=== PATIENT | female | born 1965 | race American Indian/Alaskan Native ===

== ENCOUNTER 2019-07-07 12:36 | Emergency (ER) | payer SELFPAY ==
--- NOTE | 2019-07-07 13:00 | Event Note ---
ED Screening Note Date of service: 07/07/19 Time: 12:54 ED Screening Note: Pt complains of cough and congestion x 4 days. Denies fever. Hx of HIV-states taking antivirals also complains of chronic pain in legs from shingles BP elevated-pt states she just took her BP meds-normally runs 195/100 with meds per pt This initial assessment/diagnostic orders/clinical plan/treatment(s) is/are subject to change based on patients health status, clinical progression and re- assessment by fellow clinical providers in the ED. Further treatment and workup at subsequent clinical providers discretion. Patient/guardian urged not to elope from the ED as their condition may be serious if not clinically assessed and managed. Initial orders include: CXR BMP CBC
[2019-07-07] MEDS ORDERED: CATAPRES PO ONE (13:26)
[2019-07-07] MEDS ORDERED: PROVENTIL IH ONE (13:37)
--- NOTE | 2019-07-07 13:43 | Emergency Department Report ---
HPI - General Chief Complaint: Upper Respiratory Infection Time Seen by Provider: 07/07/19 13:25 - HPI HPI: Room 40 The patient is a 53-year-old female presenting with chief complaint of shortness of breath and cough. The patient states for the past 2 days she's had a cough has been nonproductive associated with shortness of breath and yellow rhinorr hea. The patient states other family members in the home are sick with the same symptoms. Patient of Mr. lynch. Patient also complains of pain to her lower extremity from her diagnosis of shingles 6 months ago. The patient states she is taking gabapentin 300 mg and it is not helping ED Past Medical Hx - Past Medical History Previous Medical History?: Yes Hx Hypertension: Yes Hx HIV: Yes (last CD4 count normal) Additional medical history: Shingles - Surgical History Additional Surgical History: C Section - Family History Family history: no significant - Social History Smoking Status: Current Every Day Smoker (1/2 pack per day) Substance Use Type: None (denies illicit drug use) - Medications Home Medications: Home Medications Medication Instructions Recorded Confirmed Last Taken Type ALBUTEROL Inhaler (OR & NICU) 2 puff IH QID PRN #1 inhalation 07/07/19 Unknown Rx [Proair] Azithromycin [Zithromax Z-ROSHNI] 0 mg PO DAILY #6 tab 07/07/19 Unknown Rx Benzonatate [Tessalon Perles] 100 mg PO Q8HR #30 capsule 07/07/19 Unknown Rx Ibuprofen [Motrin 800 MG tab] 800 mg PO Q8HR PRN #20 tablet 07/07/19 Unknown Rx traMADol [Ultram] 50 mg PO Q6HR PRN #10 tablet 07/07/19 Unknown Rx ED Review of Systems ROS: Stated complaint: FLU LIKE SYMPTOMS/CERVICAL WARTS Other details as noted in HPI Constitutional: no symptoms reported Eyes: denies: eye pain ENT: other (rhinorrhea) Respiratory: cough, shortness of breath Cardiovascular: denies: chest pain Endocrine: no symptoms reported Gastrointestinal: denies: abdominal pain Genitourinary: denies: dysuria Musculoskeletal: myalgia Neurological: denies: headache Physical Exam - Physical Exam Vital Signs: Vital Signs 07/07/19 12:54 Temperature 98.5 F Pulse Rate 66 Respiratory 18 Rate Blood Pressure 235/139 Blood Pressure 235/139 [Right] O2 Sat by Pulse 99 Oximetry Physical Exam: GENERAL: The patient is well-developed well-nourished female lying on stretcher not appearing to be in acute distress. [] HEENT: Normocephalic. Atraumatic. Extraocular motions are intact. Patient has moist mucous membranes. Rhinorrhea NECK: Supple. Trachea midline CHEST/LUNGS: Occasional rhonchi, occasional cough. There is no respiratory distress noted. HEART/CARDIOVASCULAR: Regular. There is no tachycardia. There is no gallop rub or murmur. ABDOMEN: Abdomen is soft, nontender. Patient has normal bowel sounds. There is no abdominal distention. SKIN: There is no rash. There is no edema. There is no diaphoresis. NEURO: The patient is awake, alert, and oriented. The patient is cooperative. The patient has normal speech and gait. MUSCULOSKELETAL: There is no evidence of acute injury. ED Course Vital Signs 07/07/19 12:54 Temperature 98.5 F Pulse Rate 66 Respiratory 18 Rate Blood Pressure 235/139 Blood Pressure 235/139 [Right] O2 Sat by Pulse 99 Oximetry ED Medical Decision Making - Lab Data Result diagrams: 07/07/19 14:09 07/07/19 14:09 Laboratory Tests 07/07/19 07/07/19 07/07/19 14:09 14:09 14:20 WBC 4.1 L RBC 5.77 H Hgb 13.0 Hct 41.1 MCV 71 L MCH 23 L MCHC 32 RDW 14.5 Plt Count 234 Lymph % (Auto) 35.2 H Dare % (Auto) 15.9 H Eos % (Auto) 2.2 Baso % (Auto) 0.6 Lymph # 1.4 Dare # 0.7 Eos # 0.1 Baso # 0.0 Seg Neutrophils % 46.1 Seg Neutrophils # 1.9 Sodium 138 Potassium 4.3 Chloride 100.1 Carbon Dioxide 23 Anion Gap 19 BUN 17 Creatinine 1.1 Estimated GFR 52 BUN/Creatinine Ratio 15 Glucose 100 Calcium 9.4 Influenza A (Rapid) Negative Influenza B (Rapid) Negative - Radiology Data Radiology results: image reviewed (chest x-ray) interpreted by me: Chest x-ray-no focal infiltrates, no pneumothorax - Differential Diagnosis URI, bronchitis, influenza Critical care attestation.: If time is entered above; I have spent that time in minutes in the direct care of this critically ill patient, excluding procedure time. ED Disposition Clinical Impression: URI (upper respiratory infection) Disposition: DC-01 TO HOME OR SELFCARE Is pt being admited?: No Does the pt Need Aspirin: No Condition: Stable Additional Instructions: Return to the emergency department should you develop worsening symptoms, inability to tolerate food or liquids, high fever or any other concerns Prescriptions: Ibuprofen [Motrin 800 MG tab] 800 mg PO Q8HR PRN #20 tablet PRN Reason: Pain, Moderate (4-6) ALBUTEROL Inhaler (OR & NICU) [Proair] 2 puff IH QID PRN #1 inhalation PRN Reason: Shortness Of Breath Benzonatate [Tessalon Perles] 100 mg PO Q8HR #30 capsule traMADol [Ultram] 50 mg PO Q6HR PRN #10 tablet PRN Reason: Pain Azithromycin [Zithromax Z-ROSHNI] 0 mg PO DAILY #6 tab Referrals: CHRISTOPHE FUCHS MD [Staff Physician] - 3-5 Days (Dr. Fuchs is a primary physician. Please follow up with him to be established as a patient) CAROL PENA MD [Staff Physician] - 3-5 Days (Dr. Pena is an Infectious [facility] doctor. Please follow up with him to be established as a patient) Time of Disposition: 16:49
[2019-07-07 14:41] LABS: Basophils % (Auto) 0.6 % (0.0-1.8); Eosinophils # (Auto) 0.1 K/mm3 (0.0-0.4); Eosinophils % (Auto) 2.2 % (0.0-4.3); Hematocrit 41.1 % (30.3-42.9); Lymphocytes # (Auto) 1.4 K/mm3 (1.2-5.4); Lymphocytes % (Auto) 35.2 % (13.4-35.0); Mean Corpuscular HGB Conc 32 % (30-34); Mean Corpuscular Volume 71 fl (79-97); Monocytes # (Auto) 0.7 K/mm3 (0.0-0.8); Monocytes % (Auto) 15.9 % (0.0-7.3); Platelet Count 234 K/mm3 (140-440); Red Blood Count 5.77 M/mm3 (3.65-5.03); Red Cell Distribution Width 14.5 % (13.2-15.2)
[2019-07-07 15:00] LABS: Calcium 9.4 mg/dL (8.4-10.2)
--- NOTE | 2019-07-07 17:33 | XRay Report ---
CHEST 1 VIEW INDICATION / CLINICAL INFORMATION: cough. COMPARISON: None available. FINDINGS: SUPPORT DEVICES: None. HEART / MEDIASTINUM: No significant abnormality. LUNGS / PLEURA: No significant pulmonary or pleural abnormality. No pneumothorax. There is minimal le ft midlung atelectasis. ADDITIONAL FINDINGS: No significant additional findings. IMPRESSION: 1 No significant abnormality. Signer Name: Neil Mcgregor MD Signed: 07/07/2019 5:28 PM Workstation Name: [id number]
[2019-07-07 17:48] VITALS: BP 171/106
== END 2019-07-07 17:46 | disposition home or self-care (01) ==
LOC: ED 12:36
DX: J06.9 Acute upper respiratory infection, unspecified (principal); I10 Essential (primary) hypertension; F17.200 Nicotine dependence, unspecified, uncomplicated
CPT/HCPCS: 36415; 71046; 80048; 85025; 87400; 94640; 94644

== ENCOUNTER 2019-08-14 14:07 | Emergency (ER) | payer OTHER ==
[2019-08-14] MEDS ORDERED: hydrALAZINE 100 MG TAB PO ONE (15:02)
[2019-08-14] MEDS ORDERED: LOSARTAN 50 MG TAB PO ONE (15:10)
--- NOTE | 2019-08-14 16:22 | Emergency Department Report ---
ED General Adult HPI - General Chief complaint: High BP Stated complaint: HBP/HEADACHE Time Seen by Provider: 08/14/19 14:52 Source: patient Mode of arrival: Ambulatory Limitations: No Limitations - History of Present Illness Initial comments: 53-year-old female with a past medical history hypertension and HIV presents to the hospital complaining of elevated blood pressure and headache. Patient states she has had similar symptoms in the past her blood pressure was high. She last took her depression medicine yesterday. She complains of a 5/10 head ache which she characterizes as mild. She denies blurred vision, nausea, vomiting, chest pain, shortness of breath, or focal weakness or numbness. Patient presents with several blood pressure medication prescriptions stating that she cannot afford to have them filled. She received a 1 month supply of her meds 3 from [facility] and states they refused to give her anymore free medication. She cannot afford the medication and has been prescribed below. She was just seen at [place] several days ago and had a last drawn and received additional prescriptions. Patient states that she will continue to go to ERs for treatment because she cannot afford the meds. nifedipine 90mg q 24hr losartan 100mg qd hydralazine 100 mg BID gabapentin 300mg tid [id number] alafenamide 50-200-25mg qd Severity scale (0 -10): 0 - Related Data Previous Rx's Medication Instructions Recorded Last Taken Type ALBUTEROL Inhaler (OR & NICU) 2 puff IH QID PRN #1 inhalation 07/07/19 Unknown Rx [Proair] Azithromycin [Zithromax Z-ROSHNI] 0 mg PO DAILY #6 tab 07/07/19 Unknown Rx Benzonatate [Tessalon Perles] 100 mg PO Q8HR #30 capsule 07/07/19 Unknown Rx Ibuprofen [Motrin 800 MG tab] 800 mg PO Q8HR PRN #20 tablet 07/07/19 Unknown Rx traMADoL [Ultram] 50 mg PO Q6HR PRN #10 tablet 07/07/19 Unknown Rx Bictegrav/Emtricit/Tenofov Ala 1 each PO DAILY #14 tablet 08/14/19 Unknown Rx [Biktarvy 50-200-25 mg (Nf)] Gabapentin 300 mg PO Q8HR #42 capsule 08/14/19 Unknown Rx Losartan [Cozaar] 100 mg PO QDAY #14 tablet 08/14/19 Unknown Rx NIFEdipine [Nifedipine ER] 90 mg PO Q24HR #14 tablet.er 08/14/19 Unknown Rx hydrALAZINE [Apresoline TAB] 100 mg PO BID #28 tab 08/14/19 Unknown Rx Allergies Allergy/AdvReac Type Severity Reaction Status Date / Time No Known Allergies Allergy Verified 08/14/19 14:09 ED Review of Systems ROS: Stated complaint: HBP/HEADACHE Other details as noted in HPI Comment: All other systems reviewed and negative ED Past Medical Hx - Past Medical History Hx Hypertension: Yes Hx CVA: No Hx Heart Attack/AMI: No Hx Diabetes: No Hx Deep Vein Thrombosis: No Hx Pulmonary Embolism: No Hx GERD: No Hx Liver Disease: No Hx Renal Disease: No Hx Sickle Cell Disease: No Hx Arthritis: No Hx Headaches / Migraines: No Hx Seizures: No Hx Kidney Stones: No Hx Psychiatric Treatment: No Hx Asthma: No Hx COPD: No Hx Tuberculosis: No Hx Dementia: No Hx HIV: Yes (last CD4 count normal) Additional medical history: Shingles - Surgical History Hx Coronary Stent: No Hx Pacemaker: No Hx Internal Defibrillator: No Hx Cholecystectomy: No Hx Appendectomy: No Hx Breast Surgery: No Additional Surgical History: C Section - Social History Smoking Status: Current Every Day Smoker Substance Use Type: None - Medications Home Medications: Home Medications Medication Instructions Recorded Confirmed Last Taken Type ALBUTEROL Inhaler (OR & NICU) 2 puff IH QID PRN #1 inhalation 07/07/19 Unknown Rx [Proair] Azithromycin [Zithromax Z-ROSHNI] 0 mg PO DAILY #6 tab 07/07/19 Unknown Rx Benzonatate [Tessalon Perles] 100 mg PO Q8HR #30 capsule 07/07/19 Unknown Rx Ibuprofen [Motrin 800 MG tab] 800 mg PO Q8HR PRN #20 tablet 07/07/19 Unknown Rx traMADoL [Ultram] 50 mg PO Q6HR PRN #10 tablet 07/07/19 Unknown Rx Bictegrav/Emtricit/Tenofov Ala 1 each PO DAILY #14 tablet 08/14/19 Unknown Rx [Biktarvy 50-200-25 mg (Nf)] Gabapentin 300 mg PO Q8HR #42 capsule 08/14/19 Unknown Rx Losartan [Cozaar] 100 mg PO QDAY #14 tablet 08/14/19 Unknown Rx NIFEdipine [Nifedipine ER] 90 mg PO Q24HR #14 tablet.er 08/14/19 Unknown Rx hydrALAZINE [Apresoline TAB] 100 mg PO BID #28 tab 08/14/19 Unknown Rx ED Physical Exam - General Limitations: No Limitations - Other Other exam information: General: No acute distress Head: Atraumatic Eyes: normal appearance ENT: Moist mucous membranes Neck: Normal appearance, no midline tenderness Chest: Clear to auscultation bilaterally CV: Regular rate and rhythm Abdomen: Soft, normal bowel sounds, nontender, nondistended, no rebound or guarding Back: Normal inspection Extremity: Normal inspection infection, full range of motion Neuro: Alert O x 3, no facial asymmetry, speech clear, no gross motor sensory deficit Psych: Appropriate behavior Skin: No rash ED Course Vital Signs 08/14/19 08/14/19 08/14/19 15:28 15:30 15:31 Temperature 97.6 F Pulse Rate 55 L 54 L 57 L Respiratory 18 18 21 Rate Blood Pressure 211/119 Blood Pressure 211/119 [Right] O2 Sat by Pulse 100 100 100 Oximetry 08/14/19 08/14/19 08/14/19 15:32 15:41 16:00 Temperature 97.6 F 97.6 F Pulse Rate 53 L 53 L 63 Respiratory 18 20 Rate Blood Pressure 211/119 211/119 235/120 Blood Pressure 262/159 [Right] O2 Sat by Pulse 100 97 Oximetry 08/14/19 08/14/19 08/14/19 16:30 17:00 17:15 Temperature Pulse Rate 92 H 94 H 102 H Respiratory 13 19 26 H Rate Blood Pressure 201/107 185/112 176/118 Blood Pressure [Right] O2 Sat by Pulse 100 99 96 Oximetry 08/14/19 08/14/19 17:30 17:45 Temperature Pulse Rate 97 H 64 Respiratory 27 H 17 Rate Blood Pressure 151/108 156/99 Blood Pressure [Right] O2 Sat by Pulse 97 96 Oximetry ED Medical Decision Making - Medical Decision Making pt given a dose of hydralazine and Cozaar. Patient had recent last performed at [facility] within last week. pt denies renal failure. states lantigua similar to previous htn lantigua bp and lantigua improved with blood pressure reduction plan to prescribed current meds in 2 week increments to make it more affordable to fill, good rx card given - Differential Diagnosis htn emergency/urgency/uncontrolled bp/med noncompliance Critical Care Time: No Critical care attestation.: If time is entered above; I have spent that time in minutes in the direct care of this critically ill patient, excluding procedure time. ED Disposition Clinical Impression: Uncontrolled hypertension, Headache, Noncompliance with medication regimen Disposition: - TO HOME OR SELFCARE Is pt being admited?: No Does the pt Need Aspirin: No Condition: Stable Instructions: Hypertension (ED), Acute Headache (ED) Additional Instructions: Take the medication as prescribed. Follow-up with your doctor or doctor/clinic provided. Return if symptoms worsen as indicated by your discharge instructions. Prescriptions: hydrALAZINE [Apresoline TAB] 100 mg PO BID #28 tab Bictegrav/Emtricit/Tenofov Ala [Biktarvy 50-200-25 mg (Nf)] 1 each PO DAILY #14 tablet Losartan [Cozaar] 100 mg PO QDAY #14 tablet Gabapentin 300 mg PO Q8HR #42 capsule NIFEdipine [Nifedipine ER] 90 mg PO Q24HR #14 tablet.er Referrals: [facility] [Provider Group] - 3-5 Days Time of Disposition: 18:40
[2019-08-14 19:02] VITALS: BP 159/88
== END 2019-08-14 19:02 | disposition home or self-care (01) ==
LOC: ED 14:07
DX: R51 Headache (principal); I10 Essential (primary) hypertension; F17.200 Nicotine dependence, unspecified, uncomplicated; Z91.14 Patient's other noncompliance with medication regimen

== ENCOUNTER 2019-09-01 09:51 | Emergency (ER) | payer SELFPAY ==
[2019-09-01 09:56] VITALS: BP 168/103
--- NOTE | 2019-09-01 10:34 | Emergency Department Report ---
Chief Complaint: Upper Respiratory Infection Stated Complaint: COLD SYMPTOMS/DIARRHEA Time Seen by Provider: 09/01/19 10:31 - HPI History of Present Illness: Mrs. Wallis is a 53 yo female with hx of HIV on ART. She reports undetectable viral load and normal CD 4 counts without complication. She has cough, body aches, nasal congestion. No fever. dx: URI. recommended OTC supportive care treatments MSE performed. No indication of life or limb threating condition. dc'd home - Exam Vital Signs: Vital Signs 09/01/19 09:55 Temperature 98.0 F Pulse Rate 79 Respiratory 22 Rate Blood Pressure 168/103 O2 Sat by Pulse 97 Oximetry MSE screening note: Focused history and physical exam performed. Due to findings the following was ordered: ED Disposition for MSE Clinical Impression: URI (upper respiratory infection) Disposition: Z-07 MED SCREENING EXAM-LEFT Is pt being admited?: No Does the pt Need Aspirin: No Condition: Stable
== END 2019-09-01 10:59 | disposition left against medical advice (07) ==
LOC: ED 09:51
DX: J06.9 Acute upper respiratory infection, unspecified (principal)
CPT/HCPCS: 99282

== ENCOUNTER 2019-11-30 10:40 | Emergency (ER) | payer SELFPAY ==
[2019-11-30] MEDS ORDERED: NON-FORMULARY EACH (Nifedipine [Nifedipine Er] 90 MG) PO STA (11:48)
[2019-11-30] MEDS ORDERED: hydrALAZINE 100 MG TAB PO ONE (11:49)
--- NOTE | 2019-11-30 11:49 | Emergency Department Report ---
ED General Adult HPI - General Chief complaint: High BP Stated complaint: HBP Time Seen by Provider: 11/30/19 11:33 Source: patient, RN notes reviewed, old records reviewed Mode of arrival: Ambulatory Limitations: No Limitations - History of Present Illness Initial comments: The patient is a pleasant 54-year-old female. She is not known to myself previ ously. She has a history of hypertension and HIV. She is currently on antiviral therapy, and takes losartan, nifedipine and hydralazine. She does not have a local primary care doctor secondary to insurance issues. She presents to the ER today with a complaint of painless high blood pressure. She ran out of her medications this week. She also consumes coffee. She denies physical pain. She denies headache, neck pain, chest pain, abdominal pain and shortness of breath. She has no complaints at this time. She was given her antihypertensive therapy, and her blood pressure improved. She reports that she is following up with the health department. She endorses readiness for discharge. -: Gradual Consistency: now resolved Improves with: medication Worsens with: none Associated Symptoms: denies other symptoms - Related Data Previous Rx's Medication Instructions Recorded Last Taken Type Albuterol INH(or & Nicu Only) 2 puff IH QID PRN #1 inhalation 07/07/19 Unknown Rx [ProAir HFA Inhaler] Ibuprofen [Motrin 800 MG tab] 800 mg PO Q8HR PRN #20 tablet 07/07/19 Unknown Rx Gabapentin 300 mg PO Q8HR #42 capsule 08/14/19 Unknown Rx Bictegrav/Emtricit/Tenofov Ala 1 each PO DAILY #30 tablet 11/30/19 Unknown Rx [Biktarvy 50-200-25 mg (Nf)] Losartan [Cozaar] 100 mg PO QDAY #30 tablet 11/30/19 Unknown Rx NIFEdipine [Nifedipine ER] 90 mg PO Q24HR #30 tablet.er 11/30/19 Unknown Rx hydrALAZINE [Apresoline TAB] 100 mg PO BID #28 tab 11/30/19 Unknown Rx Allergies Allergy/AdvReac Type Severity Reaction Status Date / Time No Known Allergies Allergy Verified 08/14/19 14:09 ED Review of Systems ROS: Stated complaint: HBP Other details as noted in HPI Comment: All other systems reviewed and negative ED Past Medical Hx - Past Medical History Hx Hypertension: Yes Hx CVA: No Hx Heart Attack/AMI: No Hx Diabetes: No Hx Deep Vein Thrombosis: No Hx Pulmonary Embolism: No Hx GERD: No Hx Liver Disease: No Hx Renal Disease: No Hx Sickle Cell Disease: No Hx Arthritis: No Hx Headaches / Migraines: No Hx Seizures: No Hx Kidney Stones: No Hx Psychiatric Treatment: No Hx Asthma: No Hx COPD: No Hx Tuberculosis: No Hx Dementia: No Hx HIV: Yes Additional medical history: Shingles - Surgical History Hx Coronary Stent: No Hx Pacemaker: No Hx Internal Defibrillator: No Hx Cholecystectomy: No Hx Appendectomy: No Hx Breast Surgery: No Additional Surgical History: C Section - Social History Smoking Status: Never Smoker Substance Use Type: None - Medications Home Medications: Home Medications Medication Instructions Recorded Confirmed Last Taken Type Albuterol INH(or & Nicu Only) 2 puff IH QID PRN #1 inhalation 07/07/19 Unknown Rx [ProAir HFA Inhaler] Ibuprofen [Motrin 800 MG tab] 800 mg PO Q8HR PRN #20 tablet 07/07/19 Unknown Rx Gabapentin 300 mg PO Q8HR #42 capsule 08/14/19 Unknown Rx Bictegrav/Emtricit/Tenofov Ala 1 each PO DAILY #30 tablet 11/30/19 Unknown Rx [Biktarvy 50-200-25 mg (Nf)] Losartan [Cozaar] 100 mg PO QDAY #30 tablet 11/30/19 Unknown Rx NIFEdipine [Nifedipine ER] 90 mg PO Q24HR #30 tablet.er 11/30/19 Unknown Rx hydrALAZINE [Apresoline TAB] 100 mg PO BID #28 tab 11/30/19 Unknown Rx ED Physical Exam - General Limitations: No Limitations General appearance: alert, in no apparent distress - Head Head exam: Present: atraumatic, normocephalic - Eye Eye exam: Present: normal appearance, PERRL, EOMI, other (Visual acuity intact to finger counting and color perception at a close distance). Absent: nystagmus - ENT ENT exam: Present: normal exam, normal orophraynx, mucous membranes moist, normal external ear exam - Neck Neck exam: Present: normal inspection, full ROM. Absent: tenderness, meningismus - Respiratory Respiratory exam: Present: normal lung sounds bilaterally. Absent: respiratory distress - Cardiovascular Cardiovascular Exam: Present: regular rate, normal rhythm, normal heart sounds. Absent: bradycardia, tachycardia, irregular rhythm, systolic murmur, diastolic murmur, rubs, gallop - GI/Abdominal GI/Abdominal exam: Present: soft, normal bowel sounds. Absent: distended, tenderness, guarding, rebound, rigid, pulsatile mass - Extremities Exam Extremities exam: Present: normal inspection, full ROM, other (2+ pulses noted in the bilateral upper and lower extremities. There is no palpable cord. negative Homans sign. Muscular compartments are soft. The pelvis is stable.). Absent: pedal edema, calf tenderness - Back Exam Back exam: Present: normal inspection, full ROM. Absent: tenderness, CVA tenderness (R), CVA tenderness (L), paraspinal tenderness, vertebral tenderness - Neurological Exam Neurological exam: Present: alert, oriented X3, normal gait, other (There is no facial droop. The tongue is midline. Extraocular movements are intact bilaterally. There is 5 out of 5 strength in bilateral upper and lower extremities. Sensation is intact to light touch bilateral upper and lower extremities. There is no past-pointing. There is no pronator drift. There is normal [id number]. There is a normal gait.). Absent: motor sensory deficit - Psychiatric Psychiatric exam: Present: normal affect, normal mood - Skin Skin exam: Present: warm, dry, intact, normal color. Absent: rash ED Course Vital Signs 11/30/19 11/30/19 11:42 12:50 Temperature 97.5 F L Pulse Rate 84 84 Respiratory 16 16 Rate Blood Pressure 249/161 154/90 [Left] O2 Sat by Pulse 100 96 Oximetry ED Medical Decision Making - Lab Data Vital Signs 11/30/19 11/30/19 11:42 12:50 Temperature 97.5 F L Pulse Rate 84 84 Respiratory 16 16 Rate Blood Pressure 249/161 154/90 [Left] O2 Sat by Pulse 100 96 Oximetry - Medical Decision Making Differential diagnosis, including but not limited to: Hypertension, medication refill, noncompliance, caffeine use Assessment and plan: 54-year-old female here with a complaint of painless hypertension, likely secondary to running out of her prescription medications. She is afebrile with reassuring vital signs with the exception of hypertension, and walking with a steady gait. She was given her typical antihypertensive therapy. Her blood pressure is improved. She continues to walk with a steady gait. She is in no acute distress at this time. We have given her a refill of her prescriptions, she reports that she already has an affordable prescription card, and she will receive information about local [facility] clinics. Return precautions are reviewed. She remains neurologically intact during the entire duration of her emergency room stay. Critical care attestation.: If time is entered above; I have spent that time in minutes in the direct care of this critically ill patient, excluding procedure time. ED Disposition Clinical Impression: Medication refill, Hypotension Disposition: DC-01 TO HOME OR SELFCARE Is pt being admited?: No Does the pt Need Aspirin: No Condition: Stable Additional Instructions: Continue outpatient prescription medications. Avoid consumption of caffeine, energy drinks and stimulants. Follow-up with the medical doctor within the next 4 to 6 weeks. Long-term complications of hypertension and elevated blood pressure include stroke, heart attack, disability, paralysis, loss of quality of life. Return to the emergency room right away with new, worsened or different symptoms, or symptoms not present on the initial emergency room evaluation. Please be mindful of avoiding alcohol consumption and tobacco consumption. Prescriptions: hydrALAZINE [Apresoline TAB] 100 mg PO BID #28 tab Bictegrav/Emtricit/Tenofov Ala [Biktarvy 50-200-25 mg (Nf)] 1 each PO DAILY #30 tablet Losartan [Cozaar] 100 mg PO QDAY #30 tablet NIFEdipine [Nifedipine ER] 90 mg PO Q24HR #30 tablet.er Referrals: PRIMARY MD BOB [Primary Care Provider] - 3-5 Days LUCIANO JORDAN MD [Staff Physician] - 3-[address] [facility] [Provider Group] - 3-5 Days [facility] [Provider Group] - 3-5 Days [facility] [Outside] - 3-5 Days
[2019-11-30] MEDS ORDERED: NIFEdipine XL 90 MG TAB PO STA (11:54)
[2019-11-30] MEDS: LOSARTAN 50 MG TAB PO SCH ×2 (11:59→12:14)
[2019-11-30] MEDS ORDERED: NON-FORMULARY EACH (Losartan [Cozaar] 100 MG) PO SCH (12:00)
[2019-11-30 12:58] VITALS: BP 154/90
== END 2019-11-30 14:01 | disposition home or self-care (01) ==
LOC: ED 10:40
DX: I10 Essential (primary) hypertension (principal); Z76.0 Encounter for issue of repeat prescription
CPT/HCPCS: 99282

== ENCOUNTER 2020-01-15 15:47 | Emergency (ER) | payer SELFPAY ==
--- NOTE | 2020-01-15 16:26 | XRay Report ---
CHEST 2 VIEWS INDICATION / CLINICAL INFORMATION: Cough, shortness of breath. COMPARISON: Chest x-ray on 07/07/2019. FINDINGS: SUPPORT DEVICES: None. HEART / MEDIASTINUM: No significant abnormality. LUNGS / PLEURA: No significant pulmonary or pleural abnormality. No pneumothorax. ADDITIONAL FINDINGS: No significant additional findings. IMPRESSION: 1. No acute findings. Signer Name: Jeremiah Delgado MD Signed: 01/15/2020 4:22 PM Workstation Name: [id number]
--- NOTE | 2020-01-15 16:29 | Emergency Department Report ---
Minor Respiratory - HPI Chief Complaint: Dyspnea/Respdistress Stated Complaint: SOB,COUGH Time Seen by Provider: 01/15/20 16:29 Duration: 5 Days Pain Location: Chest Severity: moderate Minor Respiratory: Yes Able to Tolerate Fluids, Yes Cough, Yes Sick Contacts, Yes Shortness of Breath, No Rhinorrhea, No Sore Throat, No Ear Pain, No Hemoptysis, No Chest Pain, No Fever Other History: Patient is a 54-year-old that comes to the emergency room with concern for COVID. Patient has a history of HIV. Her daughter has recently been positive for COVID. Patient had a COVID test today and has not had the results delivered to her from the clinic. Patient has cough shortness of breath and chills. Patient has a history of hypertension. Her blood pressure was noted to be elevated on arrival. She denies any chest pain. Patient has no fever on arrival to the ER. Patient is ambulatory to the ER and in no acute distress ED Review of Systems ROS: Stated complaint: SOB,COUGH Other details as noted in HPI Comment: All other systems reviewed and negative ED Past Medical Hx - Past Medical History Previous Medical History?: Yes Hx Hypertension: Yes Hx CVA: No Hx Heart Attack/AMI: No Hx Diabetes: No Hx Deep Vein Thrombosis: No Hx Pulmonary Embolism: No Hx GERD: No Hx Liver Disease: No Hx Renal Disease: No Hx Sickle Cell Disease: No Hx Arthritis: No Hx Headaches / Migraines: No Hx Seizures: No Hx Kidney Stones: No Hx Psychiatric Treatment: No Hx Asthma: No Hx COPD: No Hx Tuberculosis: No Hx Dementia: No Hx HIV: Yes Additional medical history: Shingles - Surgical History Past Surgical History?: Yes Hx Coronary Stent: No Hx Pacemaker: No Hx Internal Defibrillator: No Hx Cholecystectomy: No Hx Appendectomy: No Hx Breast Surgery: No Additional Surgical History: C Section - Family History Family history: no significant - Social History Smoking Status: Current Every Day Smoker Substance Use Type: None - Medications Home Medications: Home Medications Medication Instructions Recorded Confirmed Last Taken Type Albuterol INH(or & Nicu Only) 2 puff IH QID PRN #1 inhalation 07/07/19 Unknown Rx [ProAir HFA Inhaler] Gabapentin 300 mg PO Q8HR #42 capsule 08/14/19 Unknown Rx Bictegrav/Emtricit/Tenofov Ala 1 each PO DAILY #30 tablet 11/30/19 Unknown Rx [Biktarvy 50-200-25 mg (Nf)] Losartan [Cozaar] 100 mg PO QDAY #30 tablet 11/30/19 Unknown Rx NIFEdipine [Nifedipine ER] 90 mg PO Q24HR #30 tablet.er 11/30/19 Unknown Rx hydrALAZINE [Apresoline TAB] 100 mg PO BID #28 tab 11/30/19 Unknown Rx Azithromycin [Zithromax Z-ROSHNI] 250 mg PO DAILY #6 tablet 01/15/20 Unknown Rx Minor Respiratory Exam - Exam General: Vital signs noted. No distress. Alert and acting appropriately. HEENT: Yes Moist Mucous Membranes, No Pharyngeal Erythema, No Pharyngeal Exudates, No Rhinorrhea, No Conjuctival Injection, No Frontal Tenderness, No Maxillary Tenderness Ear: Neither TM Bulge, Neither TM Erythema, Neither EAC Pain, Neither EAC Discharge Neck: Yes Supple, No Adenopathy Lungs: Yes Good Air Exchange, No Wheezes, No Ronchi, No Stridor, No Cough, No Labored Respirations, No Retractions, No Use of Accessory Muscles, No Other A bnormal Lung Sounds Heart: Yes Regular, No Murmur Abdomen: Yes Normal Bowel Sounds, No Tenderness, No Peritoneal Signs Skin: No Rash, No Edema Neurologic: Alert and oriented, no deficits. Musculoskeletal: Unremarkable. ED Course Vital Signs 01/15/20 16:05 Temperature 98.2 F Pulse Rate 71 Respiratory 24 Rate Blood Pressure 190/120 O2 Sat by Pulse 99 Oximetry - Reevaluation(s) Reevaluation #1: 01/15/[address] KERI LAGUNA TO [facility] ED Medical Decision Making - Lab Data Result diagrams: 01/15/20 16:16 01/15/20 16:16 - Radiology Data Radiology results: report reviewed, image reviewed - Medical Decision Making Labs 01/15/20 01/15/20 01/15/20 16:16 16:16 16:16 WBC 2.7 L RBC 4.67 Hgb 10.6 Hct 33.8 MCV 72 L MCH 23 L MCHC 31 RDW 18.4 H Plt Count 103 L Lymph % (Auto) 15.2 Harper % (Auto) 8.2 H Eos % (Auto) 0.2 Baso % (Auto) 0.7 Lymph # 0.4 L Harper # 0.2 Eos # 0.0 Baso # 0.0 Seg Neutrophils % 75.7 H Seg Neutrophils # 2.1 D-Dimer 1365.24 H Sodium 136 L Potassium 3.3 L Chloride 102.5 Carbon Dioxide 20 L Anion Gap 17 BUN 17 Creatinine 1.1 Estimated GFR > 60 BUN/Creatinine Ratio 15 Glucose 121 H Calcium 9.2 Ferritin Total Bilirubin 0.60 AST 26 ALT 18 Alkaline Phosphatase 69 Lactate Dehydrogenase C-Reactive Protein Total Protein 9.5 H Albumin 3.4 L Albumin/Globulin Ratio 0.6 01/15/20 01/15/20 16:16 16:16 WBC RBC Hgb Hct MCV MCH MCHC RDW Plt Count Lymph % (Auto) Harper % (Auto) Eos % (Auto) Baso % (Auto) Lymph # Harper # Eos # Baso # Seg Neutrophils % Seg Neutrophils # D-Dimer Sodium Potassium Chloride Carbon Dioxide Anion Gap BUN Creatinine Estimated GFR BUN/Creatinine Ratio Glucose Calcium Ferritin 230.1 Total Bilirubin AST ALT Alkaline Phosphatase Lactate Dehydrogenase 368 H C-Reactive Protein 0.20 Total Protein Albumin Albumin/Globulin Ratio Vital Signs 01/15/20 01/15/20 01/15/20 16:05 18:47 18:48 Temperature 98.2 F Pulse Rate 71 80 80 Respiratory 24 Rate Blood Pressure 190/120 212/146 Blood Pressure 206/149 [Left] Blood Pressure 212/146 [Right] O2 Sat by Pulse 99 Oximetry Labs noted. Chest x-ray without consolidation CT scan done to rule out PE Chest CT negative Patient has not been hypoxic or febrile Blood pressure has been treated in the emergency room. Patient has been medicated with azithromycin and IV fluids in the ER. Potassium has been supplemented Patient has been given an albuterol treatment per her request Although patient is not feeling well I have discussed the case with Dr. Ascencion Kathleen and she does not meet admission criteria I had a long discussion with the patient about her underlying HIV posing a risk to her for [place]. I explained to her that coming into the hospital is in her case can expose her to more harm than good. Given that the patient is reliable for follow-up and following discharge instructions she will be discharged to home. Patient understands when she needs to return to the emergency room. She also verbalizes understanding of follow-up plan On discharge vital signs are stable, patient is taking p.o., she has normal vital signs and has no chest pain or shortness of breath on discharge - Differential Diagnosis RO PNA/COVID/PCP Critical care attestation.: If time is entered above; I have spent that time in minutes in the direct care of this critically ill patient, excluding procedure time. ED Disposition Clinical Impression: HIV (human immunodeficiency virus infection), URTI (acute upper respiratory infection), Suspected 2019-nCoV infection, Hypokalemia, Hypertension Disposition: DC-01 TO HOME OR SELFCARE Is pt being admited?: No Does the pt Need Aspirin: No Condition: Stable Instructions: COVID-19, Hypertension (ED) Additional Instructions: continue home meds stay well hydrated meds as ordered today tylenol for fever FOLLOW UP WITH PCP OR HIV MD IN THE AM YOU SHOULD BE TESTED FOR COVID- ER DOES NOT TEST SOCIAL DISTANCING Prescriptions: Azithromycin [Zithromax Z-ROSHNI] 250 mg PO DAILY #6 tablet Referrals: LUCIANO JORDAN MD [Staff Physician] - 3-5 Days Time of Disposition: 18:22
[2020-01-15 16:32] LABS: Basophils % (Auto) 0.7 % (0.0-1.8); Eosinophils % (Auto) 0.2 % (0.0-4.3); Hematocrit 33.8 % (30.3-42.9); Hemoglobin 10.6 gm/dl (10.1-14.3); Lymphocytes # (Auto) 0.4 K/mm3 (1.2-5.4); Lymphocytes % (Auto) 15.2 % (13.4-35.0); Mean Corpuscular HGB Conc 31 % (30-34); Mean Corpuscular Volume 72 fl (79-97); Monocytes # (Auto) 0.2 K/mm3 (0.0-0.8); Monocytes % (Auto) 8.2 % (0.0-7.3); Platelet Count 103 K/mm3 (140-440); Red Blood Count 4.67 M/mm3 (3.65-5.03); Red Cell Distribution Width 18.4 % (13.2-15.2)
[2020-01-15] MEDS ORDERED: SODIUM CHLORIDE 0.9% 1000 ML 1,000 ML IV ONE (16:34)
[2020-01-15] MEDS ORDERED: AZITHROMYCIN 500 MG in SODIUM CHLORIDE 0.9% 250ML 250 ML IV ONE (16:34)
[2020-01-15 16:57] LABS: C-Reactive Protein 0.2 mg/dL (0.00-1.30)
[2020-01-15 16:58] LABS: Alanine Aminotransferase 18 units/L (7-56); Albumin 3.4 g/dL (3.9-5); BUN/Creatinine Ratio 15; Blood Urea Nitrogen 17 mg/dL (7-17); Calcium 9.2 mg/dL (8.4-10.2); Hemolysis Index 3
[2020-01-15] MEDS ORDERED: POTASSIUM CHLORIDE ER 20 MEQ TAB PO ONE (17:24)
--- NOTE | 2020-01-15 18:19 | Cat Scan Report ---
CT angio chest INDICATION: CHEST PAIN. TECHNIQUE: All CT scans at this location are performed using CT dose reduction for ALARA by means of automated e xposure control. COMPARISON: None available. FINDINGS: Multiple small nodes are demonstrated in both axillae, superior mediastinum and pretracheal region, a ortopulmonary window and subcarinal region as well as in both gem. There is diffuse, chronic appeari ng interstitial disease but no acute pulmonary disease or pleural fluid. No evidence of pulmonary embolus. IMPRESSION: 1. Multiple small mediastinal and bilateral hilar nodes, as described, possibly inflammatory secondar y to chronic appearing interstitial disease. 2. Negative for pulmonary embolus. Signer Name: Phillip Salazar MD Signed: 01/15/2020 6:15 PM Workstation Name: [id number]
[2020-01-15] MEDS ORDERED: cloNIDine 0.2 MG TAB PO ONE (18:36)
[2020-01-15] MEDS ORDERED: IPRATROPIUM/ALBUTEROL SULFATE 3 ML AMPUL.NEB IH ONE ×2 (18:42→18:46)
[2020-01-15] MEDS ORDERED: hydrALAZINE 25 MG TAB PO ONE (19:33)
[2020-01-15 21:28] VITALS: BP 186/137
== END 2020-01-15 20:55 | disposition home or self-care (01) ==
LOC: ED 15:47
DX: E87.6 Hypokalemia (principal); J06.9 Acute upper respiratory infection, unspecified; I10 Essential (primary) hypertension; F17.200 Nicotine dependence, unspecified, uncomplicated; Z98.890 Other specified postprocedural states; Z79.899 Other long term (current) drug therapy
CPT/HCPCS: 36415; 71046; 71275; 80053; 82728; 83615; 85025; 85379; 86140; 96365; 99284; J0456; J7030; J7050; Q9967; 84145

== ENCOUNTER 2020-01-19 09:42 | Emergency (ER) | payer SELFPAY ==
--- NOTE | 2020-01-19 10:42 | Emergency Department Report ---
ED General Adult HPI - General Chief complaint: High BP Stated complaint: BLOOD PRESSURE PUI?: No Time Seen by Provider: 01/19/20 10:38 Source: patient Mode of arrival: Ambulatory Limitations: No Limitations - History of Present Illness Initial comments: Chief complaint: "It is my blood pressure." HPI: This is a 54-year-old female with history of HIV, hypertension who presents with blurry vision. She has been without her blood pressure medicine for at least a day. She states that her vision becomes blurred when her blood pressure is high. She has a history of severe hypertension. She does not have a primary care physician. She does not have income. She does not have health care. Consequently her family members purchases her blood pressure medication for her. She has lived in [place] for the past year. She moved from [place]. She denies headache. Denies chest pain. She denies trouble walking. She explains "I just know my blood pressure is high. -: Gradual, days(s) (1) Severity scale (0 -10): 0 Consistency: constant Improves with: none Worsens with: none Associated Symptoms: denies other symptoms - Related Data Previous Rx's Medication Instructions Recorded Last Taken Type Albuterol INH(or & Nicu Only) 2 puff IH QID PRN #1 inhalation 07/07/19 Unknown Rx [ProAir HFA Inhaler] Gabapentin 300 mg PO Q8HR #42 capsule 08/14/19 Unknown Rx Bictegrav/Emtricit/Tenofov Ala 1 each PO DAILY #30 tablet 11/30/19 Unknown Rx [Biktarvy 50-200-25 mg (Nf)] Losartan [Cozaar] 100 mg PO QDAY #30 tablet 11/30/19 Unknown Rx NIFEdipine [Nifedipine ER] 90 mg PO Q24HR #30 tablet.er 11/30/19 Unknown Rx hydrALAZINE [Apresoline TAB] 100 mg PO BID #28 tab 11/30/19 Unknown Rx Azithromycin [Zithromax Z-ROSHNI] 250 mg PO DAILY #6 tablet 01/15/20 Unknown Rx hydrALAZINE [Apresoline TAB] 10 mg PO QID #120 tablet 01/19/20 Unknown Rx Allergies Allergy/AdvReac Type Severity Reaction Status Date / Time lisinopril Allergy Angioedema Verified 01/19/20 09:51 ED Review of Systems ROS: Stated complaint: BLOOD PRESSURE Other details as noted in HPI Comment: All other systems reviewed and negative Constitutional: denies: fever, malaise Respiratory: denies: cough Cardiovascular: denies: chest pain Gastrointestinal: denies: abdominal pain, nausea, vomiting Neurological: denies: headache, numbness, paresthesias ED Past Medical Hx - Past Medical History Previous Medical History?: Yes Hx Hypertension: Yes Hx CVA: No Hx Heart Attack/AMI: No Hx Diabetes: No Hx Deep Vein Thrombosis: No Hx Pulmonary Embolism: No Hx GERD: No Hx Liver Disease: No Hx Renal Disease: No Hx Sickle Cell Disease: No Hx Arthritis: No Hx Headaches / Migraines: No Hx Seizures: No Hx Kidney Stones: No Hx Psychiatric Treatment: No Hx Asthma: No Hx COPD: No Hx Tuberculosis: No Hx Dementia: No Hx HIV: Yes Additional medical history: Shingles - Surgical History Past Surgical History?: Yes Hx Coronary Stent: No Hx Pacemaker: No Hx Internal Defibrillator: No Hx Cholecystectomy: No Hx Appendectomy: No Hx Breast Surgery: No Additional Surgical History: C Section - Social History Smoking Status: Current Every Day Smoker Substance Use Type: None - Medications Home Medications: Home Medications Medication Instructions Recorded Confirmed Last Taken Type Albuterol INH(or & Nicu Only) 2 puff IH QID PRN #1 inhalation 07/07/19 Unknown Rx [ProAir HFA Inhaler] Gabapentin 300 mg PO Q8HR #42 capsule 08/14/19 Unknown Rx Bictegrav/Emtricit/Tenofov Ala 1 each PO DAILY #30 tablet 11/30/19 Unknown Rx [Biktarvy 50-200-25 mg (Nf)] Losartan [Cozaar] 100 mg PO QDAY #30 tablet 11/30/19 Unknown Rx NIFEdipine [Nifedipine ER] 90 mg PO Q24HR #30 tablet.er 11/30/19 Unknown Rx hydrALAZINE [Apresoline TAB] 100 mg PO BID #28 tab 11/30/19 Unknown Rx Azithromycin [Zithromax Z-ROSHNI] 250 mg PO DAILY #6 tablet 01/15/20 Unknown Rx hydrALAZINE [Apresoline TAB] 10 mg PO QID #120 tablet 01/19/20 Unknown Rx ED Physical Exam - General Limitations: No Limitations General appearance: alert, in no apparent distress - Head Head exam: Present: atraumatic, normocephalic - Eye Eye exam: Present: normal appearance - ENT ENT exam: Present: mucous membranes moist - Neck Neck exam: Present: normal inspection - Respiratory Respiratory exam: Present: normal lung sounds bilaterally. Absent: respiratory distress, wheezes, rales, rhonchi - Cardiovascular Cardiovascular Exam: Present: regular rate, normal rhythm, normal heart sounds. Absent: systolic murmur, diastolic murmur, rubs, gallop - GI/Abdominal GI/Abdominal exam: Present: soft, normal bowel sounds. Absent: distended, tenderness, guarding, rebound - Extremities Exam Extremities exam: Present: normal inspection - Neurological Exam Neurological exam: Present: alert, oriented X3, CN II-XII intact, normal gait - Expanded Neurological Exam Expanded Patient oriented to: Present: person, place, time Speech: Present: fluid speech Cranial nerves: EOM's Intact: Normal, Gag Reflex: Normal Cerebellar function: Finger to Nose: Normal Sensory exam: Upper Extremity Light Touch: Normal Motor strength exam: RUE: 5, LUE: 5, RLE: 5, LLE: 5 Best Eye Response ([place]): (4) open spontaneously Best Motor Response ([place]): (6) obeys commands Best Verbal Response ([place]): (5) oriented [place] Total: 15 - Psychiatric Psychiatric exam: Present: normal affect, normal mood - Skin Skin exam: Present: warm, dry, intact, normal color. Absent: rash ED Course Vital Signs 01/19/20 01/19/20 01/19/20 09:51 09:54 10:04 Temperature 98.2 F Pulse Rate 68 65 Respiratory 16 20 Rate Blood Pressure 243/165 Blood Pressure [Right] O2 Sat by Pulse 99 Oximetry 01/19/20 01/19/20 01/19/20 10:07 10:30 11:00 Temperature Pulse Rate 63 64 64 Respiratory 18 31 H 29 H Rate Blood Pressure 233/157 202/126 Blood Pressure 240/144 [Right] O2 Sat by Pulse 99 98 99 Oximetry 01/19/20 01/19/20 01/19/20 11:12 11:30 11:41 Temperature Pulse Rate 67 68 67 Respiratory 20 20 Rate Blood Pressure 204/122 204/122 Blood Pressure 182/125 [Right] O2 Sat by Pulse 100 Oximetry ED Medical Decision Making - Medical Decision Making Hypertensive urgency with blurry vision. I do not suspect TIA or CVA. Patient states that she has recurrent visual issues. Labs obtained 3 days ago on January 15, 2020 revealed normal kidney function. Mild hypokalemia. After 1 dose of IV hydralazine, repeat blood pressure 195/102. I strongly encouraged her to be compliant with hydralazine medication. She is discharged home. I have provided outpatient clinic referrals. Critical care attestation.: If time is entered above; I have spent that time in minutes in the direct care of this critically ill patient, excluding procedure time. ED Disposition Clinical Impression: Hypertensive urgency Disposition: DC-01 TO HOME OR SELFCARE Is pt being admited?: No Does the pt Need Aspirin: No Condition: Stable Instructions: Hypertension (ED) Prescriptions: hydrALAZINE [Apresoline TAB] 10 mg PO QID #120 tablet Referrals: LUCAINO JORDAN MD [Staff Physician] - 3-5 Days [facility] [Outside] - 3-5 Days [facility] [Outside] - 3-5 Days [facility] [Outside] - 3-5 Days
[2020-01-19] MEDS: hydrALAZINE 20 MG/1 ML INJ IV ONE (11:12)
[2020-01-19 13:12] VITALS: BP 195/99
== END 2020-01-19 13:13 | disposition home or self-care (01) ==
LOC: ED 09:42
DX: I16.0 Hypertensive urgency (principal); F17.200 Nicotine dependence, unspecified, uncomplicated; Z98.890 Other specified postprocedural states; Z21 Asymptomatic human immunodeficiency virus [HIV] infection status; Z79.899 Other long term (current) drug therapy; Z88.8 Allergy status to other drugs, medicaments and biological substances
CPT/HCPCS: 96374; 99283; J0360

== ENCOUNTER 2020-02-01 21:14 | Inpatient (IN) | payer OTHER, SELFPAY ==
[2020-02-01] MEDS ORDERED: ASPIRIN 325 MG TAB PO ONE (21:34)
[2020-02-01] MEDS ORDERED: cloNIDine 0.2 MG TAB PO ONE (21:41)
[2020-02-01 22:06] LABS: Basophils % (Auto) 0.4 % (0.0-1.8); Eosinophils % (Auto) 0.2 % (0.0-4.3); Hematocrit 35.7 % (30.3-42.9); Hemoglobin 10.9 gm/dl (10.1-14.3); Lymphocytes # (Auto) 1.5 K/mm3 (1.2-5.4); Lymphocytes % (Auto) 32.4 % (13.4-35.0); Mean Corpuscular HGB Conc 31 % (30-34); Mean Corpuscular Volume 75 fl (79-97); Monocytes # (Auto) 0.4 K/mm3 (0.0-0.8); Monocytes % (Auto) 8.8 % (0.0-7.3); Platelet Count 139 K/mm3 (140-440); Red Blood Count 4.79 M/mm3 (3.65-5.03); Red Cell Distribution Width 19.9 % (13.2-15.2)
[2020-02-01 22:22] LABS: Calcium 8.5 mg/dL (8.4-10.2)
--- NOTE | 2020-02-01 22:46 | Emergency Department Report ---
ED Shortness of Breath HPI - General Chief Complaint: High BP Stated Complaint: SOB Time Seen by Provider: 02/01/20 22:15 Source: patient Mode of arrival: Ambulatory Limitations: No Limitations - History of Present Illness Initial Comments: 54-year-old female with history of hypertension presents to ED with shortness of breath x3 days. Patient also reports that her blood pressure is elevated, and reports dizziness and lightheadedness. Patient states she takes hydralazine and has been compliant with her medications however, patient reports that her blood pressure is always high despite medication. States she just moved to [place] 1 year ago and still does not have a PCP. Patient reports shortness of breath x3 days. Denies chest pain. Patient states her daughter tested positive for COVID-19 approximately 2 weeks ago. States her daughter was asymptomatic and was tested because she works for the [employer]. Patient reports she and her daug hter live together, so patient was also tested 2 weeks ago. Patient reports her test was actually negative at that time. Patient denies having any fever, chills, sore throat, body aches, diarrhea, cough, loss of smell or taste. Patient only reports shortness of breath and dizziness. MD Complaint: shortness of breath -: days(s) (3) Severity: moderate Consistency: intermittent Improves With: rest Worsens With: exertion Treatments Prior to Arrival: none - Related Data Home Oxygen Therapy: No Previous Rx's Medication Instructions Recorded Last Taken Type Albuterol INH(or & Nicu Only) 2 puff IH QID PRN #1 inhalation 07/07/19 Unknown Rx [ProAir HFA Inhaler] Gabapentin 300 mg PO Q8HR #42 capsule 08/14/19 Unknown Rx Bictegrav/Emtricit/Tenofov Ala 1 each PO DAILY #30 tablet 11/30/19 Unknown Rx [Biktarvy 50-200-25 mg (Nf)] Losartan [Cozaar] 100 mg PO QDAY #30 tablet 11/30/19 Unknown Rx NIFEdipine [Nifedipine ER] 90 mg PO Q24HR #30 tablet.er 11/30/19 Unknown Rx hydrALAZINE [Apresoline TAB] 100 mg PO BID #28 tab 11/30/19 Unknown Rx Azithromycin [Zithromax Z-ROSHNI] 250 mg PO DAILY #6 tablet 01/15/20 Unknown Rx hydrALAZINE [Apresoline TAB] 10 mg PO QID #120 tablet 01/19/20 Unknown Rx Allergies Allergy/AdvReac Type Severity Reaction Status Date / Time lisinopril Allergy Angioedema Verified 01/19/20 09:51 ED Review of Systems ROS: Stated complaint: SOB Other details as noted in HPI Comment: All other systems reviewed and negative Constitutional: denies: chills, fever ENT: denies: throat pain Respiratory: shortness of breath. denies: cough Cardiovascular: denies: chest pain, edema Gastrointestinal: denies: diarrhea Musculoskeletal: other (denies leg pain or swelling) Neurological: other (reports dizziness). denies: headache ED Past Medical Hx - Past Medical History Hx Hypertension: Yes Hx CVA: No Hx Heart Attack/AMI: No Hx Diabetes: No Hx Deep Vein Thrombosis: No Hx Pulmonary Embolism: No Hx GERD: No Hx Liver Disease: No Hx Renal Disease: No Hx Sickle Cell Disease: No Hx Arthritis: No Hx Headaches / Migraines: No Hx Seizures: No Hx Kidney Stones: No Hx Psychiatric Treatment: No Hx Asthma: No Hx COPD: No Hx Tuberculosis: No Hx Dementia: No Hx HIV: Yes Additional medical history: Shingles - Surgical History Hx Coronary Stent: No Hx Pacemaker: No Hx Internal Defibrillator: No Hx Cholecystectomy: No Hx Appendectomy: No Hx Breast Surgery: No Additional Surgical History: C Section - Social History Smoking Status: Current Every Day Smoker Substance Use Type: None - Medications Home Medications: Home Medications Medication Instructions Recorded Confirmed Last Taken Type Albuterol INH(or & Nicu Only) 2 puff IH QID PRN #1 inhalation 07/07/19 Unknown Rx [ProAir HFA Inhaler] Gabapentin 300 mg PO Q8HR #42 capsule 08/14/19 Unknown Rx Bictegrav/Emtricit/Tenofov Ala 1 each PO DAILY #30 tablet 11/30/19 Unknown Rx [Biktarvy 50-200-25 mg (Nf)] Losartan [Cozaar] 100 mg PO QDAY #30 tablet 11/30/19 Unknown Rx NIFEdipine [Nifedipine ER] 90 mg PO Q24HR #30 tablet.er 11/30/19 Unknown Rx hydrALAZINE [Apresoline TAB] 100 mg PO BID #28 tab 11/30/19 Unknown Rx Azithromycin [Zithromax Z-ROSHNI] 250 mg PO DAILY #6 tablet 01/15/20 Unknown Rx hydrALAZINE [Apresoline TAB] 10 mg PO QID #120 tablet 01/19/20 Unknown Rx ED Physical Exam - General Limitations: No Limitations General appearance: alert, in no apparent distress - Head Head exam: Present: atraumatic, normocephalic - Eye Eye exam: Present: normal appearance, EOMI - ENT ENT exam: Present: mucous membranes moist - Neck Neck exam: Present: normal inspection - Respiratory Respiratory exam: Present: normal lung sounds bilaterally. Absent: respiratory distress - Cardiovascular Cardiovascular Exam: Present: regular rate, normal rhythm - GI/Abdominal GI/Abdominal exam: Present: soft. Absent: distended, tenderness - Extremities Exam Extremities exam: Present: normal inspection. Absent: pedal edema, calf tenderness - Neurological Exam Neurological exam: Present: alert, oriented X3, CN II-XII intact, normal gait. Absent: motor sensory deficit - Psychiatric Psychiatric exam: Present: normal affect, normal mood - Skin Skin exam: Present: warm, dry, intact, normal color ED Course Vital Signs 02/01/20 02/01/20 02/01/20 21:27 22:22 22:23 Temperature 97.3 F L Pulse Rate 73 69 69 Respiratory 20 Rate Blood Pressure 241/152 231/167 Blood Pressure 231/167 [Left] O2 Sat by Pulse 100 98 Oximetry 02/02/20 02/02/20 02/02/20 00:13 01:30 02:31 Temperature Pulse Rate 64 Respiratory 32 H 16 Rate Blood Pressure 206/158 Blood Pressure 222/163 210/115 [Left] O2 Sat by Pulse 98 100 Oximetry 02/02/20 03:43 Temperature Pulse Rate 51 L Respiratory 26 H Rate Blood Pressure Blood Pressure 181/96 [Left] O2 Sat by Pulse 100 Oximetry ED Medical Decision Making - Lab Data Result diagrams: 02/01/20 21:50 02/02/20 00:56 - EKG Data -: EKG Interpreted by Co EKG shows normal: sinus rhythm Rate: normal - EKG Data Interpretation: no acute changes - Radiology Data Radiology results: report reviewed, image reviewed - Medical Decision Making Pt presents w/ elevated BP, dizziness, and SOB. BP uncontrolled, given clonidine and hydralazine here in ED. No neuro deficits on exam. CXR shows mild pulm edema and cardiomegaly. BNP elevated. Likely new onset CHF. O2 sats remain normal. Lasix given. Pt also reports that she is living in the same house as daughter who tested positive for COVID. States her own test was negative a few weeks ago, she was asymptomatic at that time. Spoke w/ Dr Gould, hospitalist, for admission. Would like to send COVID test on pt again to rule it out as a cause of her dyspnea. - Differential Diagnosis HTN, pneumonia, pulm edema Critical Care Time: Yes Critical care time in (mins) excluding proc time.: 35 Critical care attestation.: If time is entered above; I have spent that time in minutes in the direct care of this critically ill patient, excluding procedure time. Critical Care Time: 35 min ED Disposition Clinical Impression: Hypertensive emergency, New onset of congestive heart failure, Suspected 2019 novel coronavirus infection Disposition: OP ADMIT IP TO THIS HOSP Is pt being admited?: Yes Condition: Stable Time of Disposition: 00:31
--- NOTE | 2020-02-01 23:14 | XRay Report ---
CHEST 1 VIEW INDICATION: sob. COMPARISON: 01/15/2020 FINDINGS: Support devices: None. Heart: Mild cardiomegaly. Lungs/Pleura: Mild interstitial edema slightly asymmetric to the right. No appreciable effusion. Additional findings: None. IMPRESSION: 1. Mild edema in this patient with mild cardiomegaly. Signer Name: Prabhjot Camargo MD Signed: 02/01/2020 11:09 PM Workstation Name: [id number]
[2020-02-02] MEDS ORDERED: FUROSEMIDE 40 MG/4 ML INJ IV ONE (00:11)
[2020-02-02] MEDS ORDERED: hydrALAZINE 20 MG/1 ML INJ IV ONE (00:11)
[2020-02-02] MEDS ORDERED: MAGNESIUM HYDROXIDE (MOM) ORAL LIQD UDC PO PRN (01:40)
[2020-02-02] MEDS ORDERED: ONDANSETRON 4 MG/2 ML INJ IV PRN (01:40)
[2020-02-02] MEDS ORDERED: ACETAMINOPHEN 325 MG TAB PO PRN (01:40)
[2020-02-02] MEDS ORDERED: hydrALAZINE 20 MG/1 ML INJ IV PRN ×2 (01:47→09:23)
--- NOTE | 2020-02-02 02:01 | History and Physical Report ---
History of Present Illness Date of examination: 02/02/20 Date of admission: 02/02/2020 Chief complaint: Shortness of breath for 3 days History of present illness: 54-year-old female with known history of hypertension presenting to the emergency room today complaining of shortness of breath. Shortness of breath has been ongoing for about 3 days. She also indicates that her blood pressure has been elevated and at times feels dizzy and lightheaded. She indicates that her blood pressure remains high although she has been compliant with her medications. She denies any chest pain, no fever or chills, no nausea vomiting and no diarrhea. Patient admits that daughter who works for an airline tested COVID positive about 2 weeks ago. Patient indicates that test was however negative at that time. Work-up in the emergency room was remarkable for pulmonary edema on chest x-ray, patient also had an elevated BNP. Her blood pressure upon arrival in the emergency room has been quite elevated. She has had several rounds of IV hydralazine, clonidine without any significant improvement. Past History Past Medical History: hypertension, other (History of shingles in the past) Past Surgical History: Social history: no significant social history Family history: no significant family history Medications and Allergies Allergies Allergy/AdvReac Type Severity Reaction Status Date / Time lisinopril Allergy Angioedema Verified 01/19/20 09:51 Home Medications Medication Instructions Recorded Confirmed Last Taken Type Albuterol INH(or & Nicu Only) 2 puff IH QID PRN #1 inhalation 07/07/19 Unknown Rx [ProAir HFA Inhaler] Gabapentin 300 mg PO Q8HR #42 capsule 08/14/19 Unknown Rx Bictegrav/Emtricit/Tenofov Ala 1 each PO DAILY #30 tablet 11/30/19 Unknown Rx [Biktarvy 50-200-25 mg (Nf)] Losartan [Cozaar] 100 mg PO QDAY #30 tablet 11/30/19 Unknown Rx NIFEdipine [Nifedipine ER] 90 mg PO Q24HR #30 tablet.er 11/30/19 Unknown Rx hydrALAZINE [Apresoline TAB] 100 mg PO BID #28 tab 11/30/19 Unknown Rx Azithromycin [Zithromax Z-ROSHNI] 250 mg PO DAILY #6 tablet 01/15/20 Unknown Rx hydrALAZINE [Apresoline TAB] 10 mg PO QID #120 tablet 01/19/20 Unknown Rx Active Meds: Active Medications Acetaminophen (Tylenol) 650 mg PO Q4H PRN PRN Reason: Pain MILD(1-3)/Fever >100.5/CHAO Furosemide (Lasix) 40 mg IV BID@0600,1800 FILIBERTO Hydralazine HCl (Apresoline) 10 mg IV Q6H PRN PRN Reason: Blood Pressure Magnesium Hydroxide (Milk Of Magnesia) 30 ml PO Q4H PRN PRN Reason: Constipation Ondansetron HCl (Zofran) 4 mg IV Q8H PRN PRN Reason: Nausea And Vomiting Sodium Chloride (Sodium Chloride Flush Syringe 10 Ml) 10 ml IV BID FILIBERTO Sodium Chloride (Sodium Chloride Flush Syringe 10 Ml) 10 ml IV PRN PRN PRN Reason: LINE FLUSH Review of Systems Constitutional: no fever, no chills Ears, nose, mouth and throat: no headache, no vertigo Cardiovascular: shortness of breath, no chest pain, no palpitations Respiratory: no cough, no congestion Gastrointestinal: no abdominal pain, no nausea, no vomiting, no diarrhea Musculoskeletal: no neck pain, no low back pain Integumentary: no rash, no pruritis Neurological: no headaches, no change in mentation Exam - Constitutional Vitals: Temp Pulse Resp BP Pulse Ox 97.3 F L 69 32 H 206/158 98 02/01/20 21:27 02/01/20 22:23 02/02/20 00:13 02/02/20 01:30 02/02/20 00:13 General appearance: Present: no acute distress, well-nourished - EENT Eyes: Present: PERRL, EOM intact ENT: hearing intact, clear oral mucosa, dentition normal - Neck Neck: Present: supple, normal ROM - Respiratory Respiratory effort: normal Respiratory: bilateral: diminished - Cardiovascular Rhythm: regular Heart Sounds: Present: S1 & S2 - Extremities Extremities: no ischemia, pulses intact, pulses symmetrical, No edema, Full ROM Peripheral Pulses: within normal limits - Abdominal General gastrointestinal: Present: soft, non-tender, non-distended - Integumentary Integumentary: Present: clear, warm, dry - Musculoskeletal Musculoskeletal: strength equal bilaterally - Psychiatric Psychiatric: appropriate mood/affect, intact judgment & insight, cooperative - Neurologic Neurologic: CNII-XII intact, moves all extremities HEART Score - HEART Score History: Moderately suspicious EKG: Normal Age: 45-65 Risk factors: 1-2 risk factors Troponin: Troponin T < 0.010 ng/mL (0.00-0.029) 02/02/20 00:56 Troponin: < normal limit HEART Score: 3 Results - Labs CBC & Chem 7: 02/01/20 21:50 02/02/20 00:56 Labs: Abnormal lab results 02/01/20 02/01/20 02/01/20 Range/Units 21:50 21:50 21:50 MCV 75 L (79-97) fl MCH 23 L (28-32) pg RDW 19.9 H (13.2-15.2) % Plt Count 139 L (140-440) K/mm3 [place] % (Auto) 8.8 H (0.0-7.3) % D-Dimer (0-234) ng/mlDDU Potassium 3.4 L (3.6-5.0) mmol/L Carbon Dioxide 19 L (22-30) mmol/L BUN 24 H (7-17) mg/dL Creatinine 1.3 H (0.7-1.2) mg/dL Glucose 119 H (65-100) mg/dL NT-Pro-B Natriuret Pep 95155 H (0-900) pg/mL 02/02/20 Range/Units 00:56 MCV (79-97) fl MCH (28-32) pg RDW (13.2-15.2) % Plt Count (140-440) K/mm3 [place] % (Auto) (0.0-7.3) % D-Dimer 1358.73 H (0-234) ng/mlDDU Potassium (3.6-5.0) mmol/L Carbon Dioxide (22-30) mmol/L BUN (7-17) mg/dL Creatinine (0.7-1.2) mg/dL Glucose (65-100) mg/dL NT-Pro-B Natriuret Pep (0-900) pg/mL Assessment and Plan - Patient Problems (1) New onset of congestive heart failure Current Visit: Yes Status: Acute Plan to address problem: Patient admitted and placed on diuretics. Will monitor input and output and monitor daily weights. Patient will be scheduled for echocardiogram. We also request cardiology evaluation. (2) Suspected 2019 novel coronavirus infection Current Visit: Yes Status: Acute Plan to address problem: Patient tested negative for COVID 2 weeks ago. Will however consult infectious disease for evaluation and recommendation. (3) Hypertensive emergency Current Visit: Yes Status: Acute Plan to address problem: We will placed on nicardipine drip. Will monitor patient in the intensive care unit. Consult has also been placed to the air traffic supervisor for further evaluation. (4) DVT prophylaxis Current Visit: Yes Status: Acute Plan to address problem: Patient placed on subcutaneous heparin. (5) Full code status Current Visit: Yes Status: Acute
[2020-02-02 02:09] LABS: C-Reactive Protein 0.3 mg/dL (0.00-1.30)
[2020-02-02] MEDS ORDERED: cloNIDine 0.2 MG TAB PO ONE (04:58)
[2020-02-02] MEDS ORDERED: niCARdipine 50 MG in SODIUM CHLORIDE 0.9% 250ML 230 ML IV SCH (06:00)
[2020-02-02] MEDS ORDERED: cloNIDine 0.2 MG TAB ONE (06:11)
[2020-02-02] MEDS: FUROSEMIDE 40 MG/4 ML INJ IV SCH ×2 (06:45→17:57)
[2020-02-02] MEDS ORDERED: ALBUTEROL 8.5 GM INHALATION IH PRN (09:20)
--- NOTE | 2020-02-02 09:41 | Consultation ---
History of Present Illness - Reason for Consult Consult date: 02/02/20 r/o COVID Requesting physician: HIEU SHEPARD - History of Present Illness 54 years old female with history of hypertension and HIV infection, currently off ART, used to see her HIV provider in [place], last time a year ago, patient moved to [place] and have no establish HIV care. She was taking Biktarvy last time 3 months ago. Patient is admitted on 02/01/2020 due to a week of cough with whitish sputum production progressive shortness of breath. She also reports dizziness. 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 On arrival temperature 97.3, HR 73, RR 20, O2 sat 100, BP 241/152. Initial WBC 4.5. Hemoglobin 10.9. Platelets 139. Creatinine 1.3. Ferritin 292. LDH 384. CRP 0.3. BMP 14,000. Chest x-ray bilateral pulmonary edema. COVID test negative. Procal 0.09. Review of Systems: positive in bold print General: fever, chills, +malaise Cutaneous: rash, pruritus Head: headaches or injury Eyes: changes in vision, eye pain, double vision Ears: ear pain, ear discharge, ringing or hearing loss Nose: nose bleeding, stuffiness Mouth & throat: bleeding gums, horseness, no dental problems, or swollen glands Neck: no pain, node enlargement/lumps, tyroid enlargement or tenderness Respiratory: +SOB, +cough, PRIETO, wheezing, sputum, hemoptysis, pleuritic chest pain Cardiovascular: chest pain, leg edema, cyanosis, PRIETO, orthopnea Musculoskeletal: edema Gastrointestinal: nausea, vomiting, hematemesis, diarrhea, constipation, melena, bright red blood in stools, fecal incontinence, jaundice Genitourinary/Reproductive: frequent urination, dysuria, hematuria, incontinence Neurogical: seizures, headaches, weakness, paresthesias, loss of speech or vision; memory loss, vertigo, tremors, numbness Psychiatric: stable mood; excessive anxiety, sadness or moodiness Past History Past Medical History: hypertension, other (History of shingles in the past) Past Surgical History: Social history: no significant social history Family history: no significant family history Medications and Allergies Allergies Allergy/AdvReac Type Severity Reaction Status Date / Time lisinopril Allergy Angioedema Verified 01/19/20 09:51 Home Medications Medication Instructions Recorded Confirmed Last Taken Type Albuterol INH(or & Nicu Only) 2 puff IH QID PRN #1 inhalation 07/07/19 Unknown Rx [ProAir HFA Inhaler] Gabapentin 300 mg PO Q8HR #42 capsule 08/14/19 Unknown Rx Bictegrav/Emtricit/Tenofov Ala 1 each PO DAILY #30 tablet 11/30/19 Unknown Rx [Biktarvy 50-200-25 mg (Nf)] Losartan [Cozaar] 100 mg PO QDAY #30 tablet 11/30/19 Unknown Rx NIFEdipine [Nifedipine ER] 90 mg PO Q24HR #30 tablet.er 11/30/19 Unknown Rx hydrALAZINE [Apresoline TAB] 100 mg PO BID #28 tab 11/30/19 Unknown Rx Azithromycin [Zithromax Z-ROSHNI] 250 mg PO DAILY #6 tablet 01/15/20 Unknown Rx hydrALAZINE [Apresoline TAB] 10 mg PO QID #120 tablet 01/19/20 Unknown Rx Active Meds: Active Medications Acetaminophen (Tylenol) 650 mg PO Q4H PRN PRN Reason: Pain MILD(1-3)/Fever >100.5/CHAO Albuterol (Proair) 2 puff IH QID PRN PRN Reason: Shortness Of Breath Furosemide (Lasix) 40 mg IV BID@0600,1800 FILIBERTO Last Admin: 02/02/20 06:45 Dose: Not Given Documented by: Gabapentin (Gabapentin) 300 mg PO Q8HR FILIBERTO Hydralazine HCl (Apresoline) 10 mg IV Q6H PRN PRN Reason: Blood Pressure Hydralazine HCl (Apresoline) 100 mg PO TID FILIBERTO Hydralazine HCl (Apresoline) 5 mg IV Q30MIN PRN PRN Reason: Hypertension Losartan Potassium (Cozaar) 100 mg PO QDAY FILIBERTO Magnesium Hydroxide (Milk Of Magnesia) 30 ml PO Q4H PRN PRN Reason: Constipation Miscellaneous Medication (Bictegrav/Emtricit/Tenofov Ala) 1 each PO DAILY FILIBERTO Nifedipine (Procardia Xl) 90 mg PO Q24HR FILIBERTO Ondansetron HCl (Zofran) 4 mg IV Q8H PRN PRN Reason: Nausea And Vomiting Sodium Chloride (Sodium Chloride Flush Syringe 10 Ml) 10 ml IV BID FILIBERTO Sodium Chloride (Sodium Chloride Flush Syringe 10 Ml) 10 ml IV PRN PRN PRN Reason: LINE FLUSH Physical Examination - Physical Exam Narrative exam: Exam performed in conjuction with nursings staff due to lack of PPE General appearance: Alert in NAD Eyes: limited due to lack of PPE HENT: Atraumatic; oropharynx limited due to lack of PPE Lungs: anish crackles CV: RRR Abdomen: limited due to lack of PPE Extremities: limited due to lack of PPE Skin: No rash. Psych: Appropriate affect, alert and oriented to person, place and time. Neuro: alert and oriented x 3. Moving all extermities \ - Constitutional Vitals: Vital Signs Temp Pulse Resp BP Pulse Ox 97.3 F L 51 L 26 H 195/92 100 02/01/20 21:27 02/02/20 03:43 02/02/20 03:43 02/02/20 06:15 02/02/20 03:43 Temperature -Last 24 Hours Temperature 97.3 F Results - Labs CBC & Chem 7: 02/01/20 21:50 02/02/20 00:56 Labs: Abnormal lab results 02/01/20 02/01/20 02/01/20 Range/Units 21:50 21:50 21:50 MCV 75 L (79-97) fl MCH 23 L (28-32) pg RDW 19.9 H (13.2-15.2) % Plt Count 139 L (140-440) K/mm3 [place] % (Auto) 8.8 H (0.0-7.3) % D-Dimer (0-234) ng/mlDDU Potassium 3.4 L (3.6-5.0) mmol/L Carbon Dioxide 19 L (22-30) mmol/L BUN 24 H (7-17) mg/dL Creatinine 1.3 H (0.7-1.2) mg/dL Glucose 119 H (65-100) mg/dL Lactate Dehydrogenase (91-180) units/L NT-Pro-B Natriuret Pep 36887 H (0-900) pg/mL 02/02/20 02/02/20 Range/Units 00:56 00:56 MCV (79-97) fl MCH (28-32) pg RDW (13.2-15.2) % Plt Count (140-440) K/mm3 [place] % (Auto) (0.0-7.3) % D-Dimer 1358.73 H (0-234) ng/mlDDU Potassium (3.6-5.0) mmol/L Carbon Dioxide (22-30) mmol/L BUN (7-17) mg/dL Creatinine (0.7-1.2) mg/dL Glucose 118 H (65-100) mg/dL Lactate Dehydrogenase 384 H (91-180) units/L NT-Pro-B Natriuret Pep (0-900) pg/mL Assessment and Plan Cultures: none Assessment: 54 years old female with history of hypertension and HIV infection, currently off ART, admitted on 02/01/2020 due to a week of cough with whitish sputum production progressive shortness of breath: #Shortness of breath: Likely due to volume overload. BNP 14,000. Chest x-ray with bilateral pulmonary edema. Doubt bacterial pneumonia, doubt viral pneumonia. COVID test negative. #CORY: Elevated creatinine at 1.3, previous one 1.1 #HIV infection, currently off ART, used to see her HIV provider in [place], last time a year ago, patient moved to [place] and have no establish HIV care. She was taking Biktarvy last time 3 months ago. Recommendations: stop COVID isolation, transfer out COVID unit no need for systemic abx needs TTE check HIV VL/CD4/genotype Needs to establish HIV care Will follow. Alicia Sky MD Infectious Diseases [employer] [facility] M [phone] O [phone]
[2020-02-02] MEDS: NIFEdipine XL 90 MG TAB PO SCH (09:51)
[2020-02-02] MEDS ORDERED: LOSARTAN 50 MG TAB PO SCH (10:00)
[2020-02-02] MEDS ORDERED: [UNRECOGNIZED DRUG - OTHER] PO SCH (10:00)
--- NOTE | 2020-02-02 12:36 | Consultation ---
History of Present Illness Consult date: 02/02/20 Requesting physician: CASTILLO NEGRO Reason for consult: other (Abnormal CXR, PUI-COVID) History of present illness: 54 years old female with history of hypertension and HIV infection. Patient is admitted on 02/01/2020 due to a week of cough with whitish sputum production progressive shortness of breath. She also reports dizziness. 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 On arrival temperature 97.3, HR 73, RR 20, O2 sat 100, BP 241/152. Initial WBC 4.5. Hemoglobin 10.9. Platelets 139. Creatinine 1.3. Ferritin 292. LDH 384. CRP 0.3. BMP 14,000. Chest x-ray bilateral pulmonary infiltrates Work-up in the emergency room was remarkable for pulmonary edema on chest x-ray, patient also had an elevated BNP. Her blood pressure upon arrival in the emergency room has been quite elevated. She has had several rounds of IV hydralazine, clonidine without any significant improvement. I have been consulted for dyspnea and abnormal CXR, PUI-COVID Patient was seen and examined. Vitals,labs, mediations, chart and imaging reviewed Review of Systems Constitutional: no fever, no chills Ears, nose, mouth and throat: no headache, no vertigo Cardiovascular: shortness of breath, no chest pain, no palpitations Respiratory: no cough, no congestion Gastrointestinal: no abdominal pain, no nausea, no vomiting, no diarrhea Musculoskeletal: no neck pain, no low back pain Integumentary: no rash, no pruritis Neurological: no headaches, no change in mentation Past History Past Medical History: hypertension, other (History of shingles in the past) Past Surgical History: Social history: no significant social history Family history: no significant family history Medications and Allergies Allergies Allergy/AdvReac Type Severity Reaction Status Date / Time lisinopril Allergy Angioedema Verified 01/19/20 09:51 Home Medications Medication Instructions Recorded Confirmed Last Taken Type Albuterol INH(or & Nicu Only) 2 puff IH QID PRN #1 inhalation 07/07/19 02/03/20 02/03/20 Rx [ProAir HFA Inhaler] Gabapentin 300 mg PO Q8HR #42 capsule 11/02/03/20 02/03/20 Rx hydrALAZINE [Apresoline TAB] 100 mg PO BID #28 tab 11/30/19 02/03/20 02/03/20 16:24 Rx Bictegrav/Emtricit/Tenofov Ala 1 each PO DAILY #30 tablet 02/03/20 Unknown Rx [Biktarvy 50-200-25 mg (Nf)] Valsartan [Diovan] 160 mg PO DAILY #30 tablet 02/03/20 Unknown Rx hydrALAZINE [Apresoline TAB] 100 mg PO TID #90 tab 02/03/20 Unknown Rx NIFEdipine XL [Procardia Xl] 60 mg PO QDAY #30 tablet 02/04/20 Unknown Rx Active Meds: Active Medications Acetaminophen (Tylenol) 650 mg PO Q4H PRN PRN Reason: Pain MILD(1-3)/Fever >100.5/CHAO Albuterol (Proair) 2 puff IH QID PRN PRN Reason: Shortness Of Breath Furosemide (Lasix) 40 mg IV BID@0600,1800 [facility] Last Admin: 02/02/20 06:45 Dose: Not Given Documented by: Gabapentin (Gabapentin) 300 mg PO Q8HR [facility] Hydralazine HCl (Apresoline) 10 mg IV Q6H PRN PRN Reason: Blood Pressure Hydralazine HCl (Apresoline) 100 mg PO TID FILIBERTO Hydralazine HCl (Apresoline) 5 mg IV Q30MIN PRN PRN Reason: Hypertension Losartan Potassium (Cozaar) 100 mg PO QDAY [facility] Last Admin: 02/02/20 09:51 Dose: 100 mg Documented by: Magnesium Hydroxide (Milk Of Magnesia) 30 ml PO Q4H PRN PRN Reason: Constipation Miscellaneous Medication (Bictegrav/Emtricit/Tenofov Ala) 1 each PO DAILY [facility] Nifedipine (Procardia Xl) 90 mg PO Q24HR [facility] Last Admin: 02/02/20 09:51 Dose: 90 mg Documented by: Ondansetron HCl (Zofran) 4 mg IV Q8H PRN PRN Reason: Nausea And Vomiting Sodium Chloride (Sodium Chloride Flush Syringe 10 Ml) 10 ml IV BID [facility] Last Admin: 02/02/20 09:52 Dose: 10 ml Documented by: Sodium Chloride (Sodium Chloride Flush Syringe 10 Ml) 10 ml IV PRN PRN PRN Reason: LINE FLUSH Physical Examination Vital signs: Vital Signs Temp Pulse Resp BP Pulse Ox 97.3 F L 73 20 241/152 100 02/01/20 21:27 02/01/20 21:27 02/01/20 21:27 02/01/20 21:27 02/01/20 21:27 General appearance: Present: no acute distress, well-nourished - EENT Eyes: Present: PERRL, EOM intact ENT: hearing intact, clear oral mucosa, dentition normal - Neck Neck: Present: supple, normal ROM - Respiratory Respiratory effort: normal Respiratory: bilateral: diminished - Cardiovascular Rhythm: regular Heart Sounds: Present: S1 & S2 - Extremities Extremities: no ischemia, pulses intact, pulses symmetrical, No edema, Full ROM Peripheral Pulses: within normal limits - Abdominal General gastrointestinal: Present: soft, non-tender, non-distended - Integumentary Integumentary: Present: clear, warm, dry - Musculoskeletal Musculoskeletal: strength equal bilaterally - Psychiatric Psychiatric: appropriate mood/affect, intact judgment & insight, cooperative - Neurologic Neurologic: CNII-XII intact, moves all extremities Results - Laboratory Findings CBC and BMP: 02/03/20 03:45 02/03/20 03:45 PT/INR, D-dimer D-Dimer 1358.73 ng/mlDDU (0-234) H 02/02/20 00:56 Abnormal lab findings: Abnormal Labs 02/01/20 02/01/20 02/01/20 21:50 21:50 21:50 MCV 75 L MCH 23 L RDW 19.9 H Plt Count 139 L [place] % (Auto) 8.8 H D-Dimer Potassium 3.4 L Carbon Dioxide 19 L BUN 24 H Creatinine 1.3 H Glucose 119 H Lactate Dehydrogenase NT-Pro-B Natriuret Pep 70448 H 02/02/20 02/02/20 00:56 00:56 MCV MCH RDW Plt Count [place] % (Auto) D-Dimer 1358.73 H Potassium Carbon Dioxide BUN Creatinine Glucose 118 H Lactate Dehydrogenase 384 H NT-Pro-B Natriuret Pep - Diagnostic Findings Chest x-ray: image reviewed (Alveolar infiltraes, more consistent with pulmonary edema) Assessment and Plan Hypertensive Emergency New onset CHF PUI [id number] HIV - supplemental oxygen to keep O2 sats > 90% -follow up CXR in 48 hours, once euvolemic to re-evaluate the alveolar infiltra dipti -Blood pressure control -Transthoracic echocardiogram to evaluate LVEF, PHTN - continue diuresis; follow electrolytes - cardiology evaluation ongoing - avoid nephrotoxins, renally dose all medications - PT/OT as tolerated - prn analgesia per pain score - accuchecks with glycemic control per SSI for target blood glucose < 180 mg/dL - VTE prophylaxis - Flu & pneumovax per protocol -ART per ID service -Discussed and counselled her on the need fro adherence and compliance with medical therapies - weight loss / lifestyle modifications - - continue other care per attending / other consultants Thank you for consult Will follow. Please do not hesitate to call with any questions or concerns
--- NOTE | 2020-02-02 12:51 | Consultation ---
History of Present Illness Consult date: 02/02/20 Consult reason: congestive heart failure, hypertension History of present illness: This is a 54-year old woman admitted with hypertensive urgency and shortness of breath. She is currently on coronavirus protocol isolation. There was no chest pain, palpitations or reported lower extremity edema. An ECG is sinus rhythm with LVH. Review of records shows a history of hypertension, HIV. There is no prior cardiac history. She does not have a local primary care doctor due to lack of insurance. Past History Past Medical History: hypertension, other (History of shingles in the past) Past Surgical History: Social history: no significant social history Family history: no significant family history Medications and Allergies Allergies Allergy/AdvReac Type Severity Reaction Status Date / Time lisinopril Allergy Angioedema Verified 01/19/20 09:51 Home Medications Medication Instructions Recorded Confirmed Last Taken Type Albuterol INH(or & Nicu Only) 2 puff IH QID PRN #1 inhalation 07/07/19 Unknown Rx [ProAir HFA Inhaler] Gabapentin 300 mg PO Q8HR #42 capsule 08/14/19 Unknown Rx Bictegrav/Emtricit/Tenofov Ala 1 each PO DAILY #30 tablet 11/30/19 Unknown Rx [Biktarvy 50-200-25 mg (Nf)] Losartan [Cozaar] 100 mg PO QDAY #30 tablet 11/30/19 Unknown Rx NIFEdipine [Nifedipine ER] 90 mg PO Q24HR #30 tablet.er 11/30/19 Unknown Rx hydrALAZINE [Apresoline TAB] 100 mg PO BID #28 tab 11/30/19 Unknown Rx Azithromycin [Zithromax Z-ROSHNI] 250 mg PO DAILY #6 tablet 01/15/20 Unknown Rx hydrALAZINE [Apresoline TAB] 10 mg PO QID #120 tablet 01/19/20 Unknown Rx Active Meds: Active Medications Acetaminophen (Tylenol) 650 mg PO Q4H PRN PRN Reason: Pain MILD(1-3)/Fever >100.5/CHAO Albuterol (Proair) 2 puff IH QID PRN PRN Reason: Shortness Of Breath Furosemide (Lasix) 40 mg IV BID@0600,1800 [facility] Last Admin: 02/02/20 06:45 Dose: Not Given Documented by: Gabapentin (Gabapentin) 300 mg PO Q8HR FIL[facility] Hydralazine HCl (Apresoline) 10 mg IV Q6H PRN PRN Reason: Blood Pressure Hydralazine HCl (Apresoline) 100 mg PO TID [facility] Hydralazine HCl (Apresoline) 5 mg IV Q30MIN PRN PRN Reason: Hypertension Losartan Potassium (Cozaar) 100 mg PO QDAY [facility] Last Admin: 02/02/20 09:51 Dose: 100 mg Documented by: Magnesium Hydroxide (Milk Of Magnesia) 30 ml PO Q4H PRN PRN Reason: Constipation Miscellaneous Medication (Bictegrav/Emtricit/Tenofov Ala) 1 each PO DAILY [facility] Nifedipine (Procardia Xl) 90 mg PO Q24HR [facility] Last Admin: 02/02/20 09:51 Dose: 90 mg Documented by: Ondansetron HCl (Zofran) 4 mg IV Q8H PRN PRN Reason: Nausea And Vomiting Sodium Chloride (Sodium Chloride Flush Syringe 10 Ml) 10 ml IV BID [facility] Last Admin: 02/02/20 09:52 Dose: 10 ml Documented by: Sodium Chloride (Sodium Chloride Flush Syringe 10 Ml) 10 ml IV PRN PRN PRN Reason: LINE FLUSH Physical Examination Vital Signs Temp Pulse Resp BP Pulse Ox 97.3 F L 73 20 241/152 100 02/01/20 21:27 02/01/20 21:27 02/01/20 21:27 02/01/20 21:27 02/01/20 21:27 General appearance: no acute distress Cardiac: Positive: Reg Rate and Rhythm Results 02/01/20 21:50 02/02/20 00:56 Cardiac Enzymes 02/02/20 Range/Units 00:56 Lactate Dehydrogenase 384 H (91-180) units/L CBC 02/01/20 Range/Units 21:50 WBC 4.5 (4.5-11.0) K/mm3 RBC 4.79 (3.65-5.03) M/mm3 Hgb 10.9 (10.1-14.3) gm/dl Hct 35.7 (30.3-42.9) % Plt Count 139 L (140-440) K/mm3 Lymph # 1.5 (1.2-5.4) K/mm3 [place] # 0.4 (0.0-0.8) K/mm3 Eos # 0.0 (0.0-0.4) K/mm3 Baso # 0.0 (0.0-0.1) K/mm3 Comprehensive Metabolic Panel 02/01/20 02/02/20 Range/Units 21:50 00:56 Sodium 139 (137-145) mmol/L Potassium 3.4 L (3.6-5.0) mmol/L Chloride 102.2 (98-107) mmol/L Carbon Dioxide 19 L (22-30) mmol/L BUN 24 H (7-17) mg/dL Creatinine 1.3 H (0.7-1.2) mg/dL Glucose 119 H 118 H (65-100) mg/dL Calcium 8.5 (8.4-10.2) mg/dL Assessment and Plan - Patient Problems (1) Hypertensive urgency Current Visit: No Status: Acute
[2020-02-02] MEDS: GABAPENTIN 300 MG CAP PO SCH ×2 (13:18→21:35)
[2020-02-02] MEDS: hydrALAZINE 100 MG TAB PO SCH ×2 (13:18→21:35)
--- NOTE | 2020-02-02 13:42 | Event Note ---
Date: 02/02/20 patient seen and examined 54-year-old female with known history of hypertension presenting to the emergency room complaining of shortness of breath. Patient admits that daughter who works for an [employer] tested COVID positive about 2 weeks ago. Patient indicates that test was however negative at that time. Work-up in the emergency room was remarkable for pulmonary edema on chest x-ray, patient also had an elevated BNP and accelerated HTN required cardene drip. she is admitted for further mx and suspected COVID 19. cardiology consulted for possible CHF, COVID test ordered
[2020-02-02] MEDS: VALSARTAN 160MG TAB PO SCH (21:35)
[2020-02-03 04:54] LABS: Basophils % (Auto) 0.5 % (0.0-1.8); Eosinophils % (Auto) 1.5 % (0.0-4.3); Hematocrit 33.6 % (30.3-42.9); Hemoglobin 10.5 gm/dl (10.1-14.3); Lymphocytes # (Auto) 0.7 K/mm3 (1.2-5.4); Lymphocytes % (Auto) 23.9 % (13.4-35.0); Mean Corpuscular HGB Conc 31 % (30-34); Mean Corpuscular Volume 74 fl (79-97); Monocytes # (Auto) 0.4 K/mm3 (0.0-0.8); Monocytes % (Auto) 12.1 % (0.0-7.3); Platelet Count 149 K/mm3 (140-440); Red Blood Count 4.53 M/mm3 (3.65-5.03); Red Cell Distribution Width 19.3 % (13.2-15.2)
[2020-02-03 04:59] LABS: INR 1.01 (0.87-1.13)
[2020-02-03 05:03] LABS: Calcium 8.2 mg/dL (8.4-10.2)
[2020-02-03] MEDS: GABAPENTIN 300 MG CAP PO SCH ×2 (06:43→15:46)
[2020-02-03] MEDS: FUROSEMIDE 40 MG/4 ML INJ IV SCH (06:43)
[2020-02-03] MEDS: hydrALAZINE 100 MG TAB PO SCH ×2 (08:00→15:46)
--- NOTE | 2020-02-03 09:34 | Progress Note ---
Assessment and Plan - Patient Problems (1) Uncontrolled hypertension Current Visit: Yes Status: Acute Plan to address problem: The patient's presentation with symptoms of uncontrolled hypertension and a systolic blood pressure of 240. She admits to noncompliance with medical therapy for blood pressure control due to financial reasons. Recommend continued therapy with valsartan and nifedipine, and social work faculty member intervention to assist patient in procurement of her antihypertensives in the outpatient setting. No further cardiac work-up is indicated, we will sign off and follow on an intermittent basis. Subjective Date of service: 02/03/20 Interval history: Patient is comfortable, no acute distress, no further cardiac complaints. Her blood pressure is currently stable, 120s to 130s systolic on a combination of valsartan and nifedipine XL. Echocardiogram shows well-preserved left ventricular systolic function, ejection fraction 55 to 60%, with moderate dilatation of the left atrium. Objective Vital Signs Temp Pulse Resp BP Pulse Ox 02/03/20 06:01 98.5 F 55 L 18 126/84 99 02/03/20 00:00 58 L 02/02/20 23:41 98.9 F 51 L 18 138/54 100 02/02/20 20:36 99.2 F 59 L 20 128/76 98 02/02/20 16:41 99.0 F 64 22 129/74 100 02/02/20 11:31 98.8 F 53 L 22 161/103 98 02/02/20 09:51 164/111 - Physical Examination General: No Apparent Distress HEENT: Positive: PERRL Neck: Positive: neck supple Cardiac: Positive: Reg Rate and Rhythm Lungs: Positive: Decreased Breath Sounds Neuro: Positive: Grossly Intact Abdomen: Positive: Soft Skin: Positive: Clear Extremities: Absent: edema - Labs and Meds Coagulation 02/03/20 Range/Units 03:45 PT 13.4 (12.2-14.9) Sec. INR 1.01 (0.87-1.13) CBC 02/03/20 Range/Units 03:45 WBC 2.9 L (4.5-11.0) K/mm3 RBC 4.53 (3.65-5.03) M/mm3 Hgb 10.5 (10.1-14.3) gm/dl Hct 33.6 (30.3-42.9) % Plt Count 149 (140-440) K/mm3 Lymph # 0.7 L (1.2-5.4) K/mm3 Frio # 0.4 (0.0-0.8) K/mm3 Eos # 0.0 (0.0-0.4) K/mm3 Baso # 0.0 (0.0-0.1) K/mm3 Comprehensive Metabolic Panel 02/03/20 Range/Units 03:45 Sodium 140 (137-145) mmol/L Potassium 3.2 L (3.6-5.0) mmol/L Chloride 104.1 (98-107) mmol/L Carbon Dioxide 24 (22-30) mmol/L BUN 22 H (7-17) mg/dL Creatinine 1.5 H (0.7-1.2) mg/dL Glucose 92 (65-100) mg/dL Calcium 8.2 L (8.4-10.2) mg/dL
[2020-02-03] MEDS ORDERED: FUROSEMIDE 40 MG/4 ML INJ IV SCH (10:00)
[2020-02-03] MEDS ORDERED: POTASSIUM CHLORIDE ER 20 MEQ TAB PO SCH (10:00)
--- NOTE | 2020-02-03 10:29 | Progress Note ---
Assessment and Plan Hypertensive Emergency New onset CHF PUI COVID-19 Obesity - supplemental oxygen to keep O2 sats > 90% - Bronchodilators with pulm hygiene per RT - continue diuresis; follow electrolytes - cardiology evaluation ongoing - nephrotoxins, renally dose all medications - continue mobility protocols to prevent pressure ulcers - PT/OT as tolerated - prn analgesia per pain score - accuchecks with glycemic control per SSI for target blood glucose < 180 mg/dL - Smoking cessation strongly counseled at the bedside - home oxygen evaluation at discharge - GI & VTE prophylaxis - Flu & pneumovax per protocol - weight loss / lifestyle modifications - Pulmonary out patient follow up for PFTs and optimization of respiratory status - continue other care per attending / other consultants ... re-evaluate in am & prn Subjective Date of service: 02/03/20 Interval history: Patient is seen today for: Hypertensive Emergency; New onset CHF; PUI COVID-19; Obesity Seen and examined at bedside; 24hour events reviewed; nursing and respiratory care staff consulted; no adverse overnight events reported to me; resting pea cefully in bed; Objective Vital Signs - 12hr 02/02/20 02/03/20 02/03/20 23:41 00:00 06:01 Temperature 98.9 F 98.5 F Pulse Rate 51 L 58 L 55 L Respiratory 18 18 Rate Blood Pressure 138/54 126/84 O2 Sat by Pulse 100 99 Oximetry Constitutional: no acute distress Eyes: non-icteric ENT: oropharynx moist Neck: no lymphadenopathy Effort: mildly labored Ascultation: Bilateral: rhonchi Percussion: Bilateral: not dull Cardiovascular: regular rate and rhythm Gastrointestinal: normoactive bowel sounds, soft, non-tender Integumentary: normal Extremities: no cyanosis, pulses normal, no ischemia or petechiae Neurologic: pupils equal and round, CN II-XII normal Psychiatric: mood appropriate, affect normal CBC and BMP: 02/03/20 03:45 02/03/20 03:45 ABG, PT/INR, D-dimer: PT/INR, D-dimer PT 13.4 Sec. (12.2-14.9) 02/03/20 03:45 INR 1.01 (0.87-1.13) 02/03/20 03:45 D-Dimer 1358.73 ng/mlDDU (0-234) H 02/02/20 00:56 Abnormal lab findings: Abnormal Labs 02/01/20 02/01/20 02/01/20 21:50 21:50 21:50 WBC MCV 75 L MCH 23 L RDW 19.9 H Plt Count 139 L Cotton % (Auto) 8.8 H Lymph # D-Dimer Potassium 3.4 L Carbon Dioxide 19 L BUN 24 H Creatinine 1.3 H Glucose 119 H Calcium Lactate Dehydrogenase NT-Pro-B Natriuret Pep 12726 H 02/02/20 02/02/20 02/03/20 00:56 00:56 03:45 WBC 2.9 L MCV 74 L MCH 23 L RDW 19.3 H Plt Count Cotton % (Auto) 12.1 H Lymph # 0.7 L D-Dimer 1358.73 H Potassium Carbon Dioxide BUN Creatinine Glucose 118 H Calcium Lactate Dehydrogenase 384 H NT-Pro-B Natriuret Pep 02/03/20 03:45 WBC MCV MCH RDW Plt Count Cotton % (Auto) Lymph # D-Dimer Potassium 3.2 L Carbon Dioxide BUN 22 H Creatinine 1.5 H Glucose Calcium 8.2 L Lactate Dehydrogenase NT-Pro-B Natriuret Pep Allied health notes reviewed: nursing
[2020-02-03] MEDS: VALSARTAN 160MG TAB PO SCH (10:52)
[2020-02-03 10:53] VITALS: BP 137/82
[2020-02-03] MEDS: NIFEdipine XL 90 MG TAB PO SCH (10:53)
[2020-02-03] MEDS ORDERED: NIFEdipine XL 90 MG TAB PO SCH (13:32)
--- NOTE | 2020-02-03 13:38 | Discharge Summary ---
Providers - Providers Date of Admission: 02/02/20 01:37 Date of discharge: 02/03/20 Attending physician: CASTILLO NEGRO 02/02/20 00:41 Consult to Physician [CONS] Stat Comment: Consulting Provider: SERGIO PARR Physician Instructions: Reason For Exam: possible COVID 02/02/20 05:51 Consult to Physician [CONS] Routine Comment: Consulting Provider: JOSHUA JEAN Physician Instructions: Reason For Exam: hypertensive urgency Primary care physician: FLIGHT TEST DATA ACQUISITION TECHNICIAN Hospitalization Condition: Stable Hospital course: The patient is a 54-year-old woman with a history of chronic severe hypertension, hiv who presents with symptoms of dizziness and uncontrolled hypertension with a systolic blood pressure of 240. She admits to poor overall compliance with optimal antihypertensive therapy due to financial reasons. His ECG in the ER was normal sinus rhythm with left ventricular hypertrophy. Chest x-ray showed mild cardiomegaly with very mild increase in cardiovascular markings. The patient was admitted for additional suspicion of COVID-19. She initially required Cardene drip for a brief period of time, then she was placed on nifedipine XL, hydralazine and valsartan. Her Covid 19 test was negative. Patient was initially suspected for possible CHF due to chest x-ray findings. Her 2D echo showed preserved EF. Cardiology then recommended to discharge the patient and to continue outpatient follow-up. Patient was then discharged home in stable condition and recommended compliance with medications. Discharge diagnosis: CHF, suspected on admission-ruled out with normal 2D echo Malignant hypertension with dizziness CORY -BP meds adjusted Hyponatremia, likely due to diuresis repleted CORY likely due to vasomotor nephropathy, will continue further monitoring as outpatient. HIV, off ART, recommended outpatient follow-up Obesity, recommended diet and exercise Physical exam: GENERAL: well-developed and well-nourished AAF lying on bed appeared to be in no discomfort. HEENT: Normocephalic. Atraumatic. No conjunctival congestion or icterus. Patient has moist mucous membranes. NECK: Supple. Trachea midline. CHEST/LUNGS: Clear to auscultated bilaterally, breathing nonlabored. No wheezes crackles or rhonchi. HEART/CARDIOVASCULAR: Regular in rate and rhythm. S1 and S2 positive. ABDOMEN: Abdomen is soft, nontender. Patient has normal bowel sounds. SKIN: There is no rash. Warm and dry. NEURO: No focal motor deficit. Follows command. MUSCULOSKELETAL: No joint effusion or tenderness. EXTRIMITY: No edema, no cyanosis or clubbing. PSYCH: Cooperative. Disposition: DC-01 TO HOME OR SELFCARE Time spent for discharge: 34 minutes Core Measure Documentation - Palliative Care Palliative Care/ Comfort Measures: Not Applicable - Core Measures Any of the following diagnoses?: none Exam - Constitutional Vitals: Temp Pulse Resp BP Pulse Ox 98.5 F 54 L 18 137/82 99 02/03/20 06:01 02/03/20 10:52 02/03/20 06:01 02/03/20 10:52 02/03/20 06:01 Plan Activity: advance as tolerated Weight Bearing Status: Weight Bear as Tolerated Diet: low fat, low salt Special Instructions: record daily BP diary Additional Instructions: repeat BMP by next week. f/u at [facility] Follow up with: PRIMARY CARE, [Primary Care Provider] - 3-5 Days Prescriptions: hydrALAZINE [Apresoline TAB] 100 mg PO TID #90 tab Bictegrav/Emtricit/Tenofov Ala [Biktarvy 50-200-25 mg (Nf)] 1 each PO DAILY #30 tablet Valsartan [Diovan] 160 mg PO DAILY #30 tablet NIFEdipine XL [Procardia Xl] 60 mg PO QDAY #30 tablet
[2020-02-03] MEDS ORDERED: NIFEdipine XL 60 MG TAB PO SCH (14:00)
[2020-02-04] MEDS ORDERED: VALSARTAN 160MG TAB PO SCH (10:00)
[2020-02-14 14:32] LABS: HIV-1 RNA QN PCR 6.18 Log cps/mL
== END 2020-02-03 18:21 | disposition home or self-care (01) | DRG 291 ==
LOC: ED 21:14 → IMCU 02-02 01:37 → CC1 02-02 08:39 → IMCU 02-02 09:40 → 4A 02-02 20:29
PROVIDERS: ADMIT Internal Medicine Geriatric Medicine; ATTEND Internal Medicine
DX: I11.0 Hypertensive heart disease with heart failure (principal); N17.0 Acute kidney failure with tubular necrosis; I16.1 Hypertensive emergency; E87.1 Hypo-osmolality and hyponatremia; E66.9 Obesity, unspecified; I50.9 Heart failure, unspecified; Z79.899 Other long term (current) drug therapy; Z79.51 Long term (current) use of inhaled steroids; Z88.8 Allergy status to other drugs, medicaments and biological substances; Z68.29 Body mass index [BMI] 29.0-29.9, adult
CPT/HCPCS: 36415; 71045; 80048; 82728; 82947; 83615; 83880; 84145; 84484; 85025; 85379; 85610; 86140; 87536; 93005; 93306; 94640; 99406; G0378; J0360; J1940; J7050; U0003

== ENCOUNTER 2020-04-08 15:07 | Emergency (ER) | payer SELFPAY ==
[2020-04-08 16:00] VITALS: BP 167/102
--- NOTE | 2020-04-08 16:33 | Emergency Department Report ---
ED Recheck HPI - General Chief Complaint: High BP Stated Complaint: HBP Time Seen by Provider: 04/08/20 16:27 Source: patient Mode of arrival: Ambulatory Limitations: No Limitations - History of Present Illness Initial Comments: This is a 54-year-old female nontoxic, well in appearance with no signs of distress presents to the ED for medication refill. Stated is out of her Losartan and Nifedipine and has taken last dose today. Stated is waiting for PCP appointment. Patient stated she is asymptotic. Denies any leg swelling, abdominal pain, or back pains. Patient denies any urinary symptoms. Patient denies any fever, chills, headache, nausea, vomiting, chest pain or shortness of breathe. . Denies any allergies. -: days(s) Returns Today for: request for prescription Symptoms Since Prior Visit: no new symptoms Associated Symptoms: none. denies: fever, chills, chest pain, shortness of breath, rash, malaise, nasuea, abdominal pain - Related Data Previous Rx's Medication Instructions Recorded Last Taken Type Albuterol Mdi (or & Nicu Only) 2 puff IH QID PRN #1 inhalation 07/07/19 02/03/20 Rx [ProAir HFA Inhaler] Gabapentin 300 mg PO Q8HR #42 capsule 08/14/19 02/03/20 Rx hydrALAZINE [Apresoline TAB] 100 mg PO BID #28 tab 11/30/19 02/03/20 16:24 Rx Bictegrav/Emtricit/Tenofov Ala 1 each PO DAILY #30 tablet 02/03/20 Unknown Rx [Biktarvy 50-200-25 mg (Nf)] Valsartan [Diovan] 160 mg PO DAILY #30 tablet 02/03/20 Unknown Rx hydrALAZINE [Apresoline TAB] 100 mg PO TID #90 tab 03/09/20 Unknown Rx Losartan [Cozaar] 50 mg PO QDAY #15 tablet 04/08/20 Unknown Rx NIFEdipine XL [Procardia Xl] 60 mg PO QDAY #15 tablet 04/08/20 Unknown Rx Allergies Allergy/AdvReac Type Severity Reaction Status Date / Time lisinopril Allergy Angioedema Verified 01/19/20 09:51 ED Review of Systems ROS: Stated complaint: HBP Other details as noted in HPI Constitutional: denies: chills, fever Eyes: denies: eye pain, eye discharge, vision change ENT: denies: ear pain, throat pain Respiratory: denies: cough, shortness of breath, wheezing Cardiovascular: denies: chest pain, palpitations Endocrine: no symptoms reported Gastrointestinal: denies: abdominal pain, nausea, diarrhea Genitourinary: denies: urgency, dysuria, discharge Musculoskeletal: denies: back pain, joint swelling, arthralgia Skin: denies: rash, lesions Neurological: denies: headache, weakness, paresthesias Psychiatric: denies: anxiety, depression Hematological/Lymphatic: denies: easy bleeding, easy bruising ED Past Medical Hx - Past Medical History Previous Medical History?: Yes Hx Hypertension: Yes Hx CVA: No Hx Heart Attack/AMI: No Hx Diabetes: No Hx Deep Vein Thrombosis: No Hx Pulmonary Embolism: No Hx GERD: No Hx Liver Disease: No Hx Renal Disease: No Hx Sickle Cell Disease: No Hx Arthritis: No Hx Headaches / Migraines: No Hx Seizures: No Hx Kidney Stones: No Hx Psychiatric Treatment: No Hx Asthma: No Hx COPD: No Hx Tuberculosis: No Hx Dementia: No Hx HIV: Yes Additional medical history: Shingles - Surgical History Past Surgical History?: Yes Hx Coronary Stent: No Hx Pacemaker: No Hx Internal Defibrillator: No Hx Cholecystectomy: No Hx Appendectomy: No Hx Breast Surgery: No Additional Surgical History: C Section - Social History Smoking Status: Unknown if ever smoked Substance Use Type: None - Medications Home Medications: Home Medications Medication Instructions Recorded Confirmed Last Taken Type Albuterol Mdi (or & Nicu Only) 2 puff IH QID PRN #1 inhalation 07/07/19 02/03/20 02/03/20 Rx [ProAir HFA Inhaler] Gabapentin 300 mg PO Q8HR #42 capsule 08/14/19 02/03/20 02/03/20 Rx hydrALAZINE [Apresoline TAB] 100 mg PO BID #28 tab 11/30/19 02/03/20 02/03/20 16:24 Rx Bictegrav/Emtricit/Tenofov Ala 1 each PO DAILY #30 tablet 02/03/20 Unknown Rx [Biktarvy 50-200-25 mg (Nf)] Valsartan [Diovan] 160 mg PO DAILY #30 tablet 02/03/20 Unknown Rx hydrALAZINE [Apresoline TAB] 100 mg PO TID #90 tab 03/09/20 Unknown Rx Losartan [Cozaar] 50 mg PO QDAY #15 tablet 04/08/20 Unknown Rx NIFEdipine XL [Procardia Xl] 60 mg PO QDAY #15 tablet 04/08/20 Unknown Rx ED Physical Exam - General Limitations: No Limitations General appearance: alert, in no apparent distress - Head Head exam: Present: atraumatic, normocephalic - Eye Eye exam: Present: normal appearance - Neck Neck exam: Present: normal inspection, full ROM. Absent: tenderness, meningismus, lymphadenopathy - Respiratory Respiratory exam: Present: normal lung sounds bilaterally. Absent: respiratory distress, wheezes, rales, rhonchi, stridor, chest wall tenderness, accessory muscle use, decreased breath sounds, prolonged expiratory - Cardiovascular Cardiovascular Exam: Present: regular rate, normal rhythm, normal heart sounds. Absent: bradycardia, tachycardia, irregular rhythm, systolic murmur, diastolic murmur, rubs, gallop - GI/Abdominal GI/Abdominal exam: Present: soft, normal bowel sounds. Absent: distended, tenderness, guarding, rebound, rigid, diminished bowel sounds - Extremities Exam Extremities exam: Present: normal inspection, full ROM - Back Exam Back exam: Present: normal inspection, full ROM - Neurological Exam Neurological exam: Present: alert, oriented X3, normal gait - Psychiatric Psychiatric exam: Present: normal affect, normal mood - Skin Skin exam: Present: warm, dry, intact, normal color. Absent: rash ED Course Vital Signs 04/08/20 15:57 Temperature 98.5 F Pulse Rate 61 Respiratory 18 Rate Blood Pressure 167/102 O2 Sat by Pulse 100 Oximetry - Reevaluation(s) Reevaluation #1: 04/08/20 16:32 Patient is speaking in full sentences with no signs of distress noted. ED Recheck MDM - Medical Decision Making Due to no PCP and awaiting for PCP and the imprortance of taking these medications, patient will be given refills for a few fews until PCP appointment. According to ACEP HTN guidelines, In ED patients with asymptomatic markedly elevated blood pressure, routine screening for acute target organ injury (eg, serum creatinine, urinalysis, ECG) is not required; In patients with asymptomatic markedly elevated blood pressure, routine ED medical intervention is not required. Patient was instructed to Follow-up with a primary care doctor in 3-5 days or if symptoms worsen and continue return to emergency room as soon as possible. At time of discharge, the patient does not seem toxic or ill in appearance. No acute signs of distress noted. Patient agrees to discharge treatment plan of care. No further questions noted by the patient. Critical care attestation.: If time is entered above; I have spent that time in minutes in the direct care of this critically ill patient, excluding procedure time. ED Disposition Clinical Impression: Medication refill Disposition: DC- TO HOME OR SELFCARE Is pt being admited?: No Does the pt Need Aspirin: No Condition: Stable Additional Instructions: Follow-up with a primary care doctor in 3-5 days or if symptoms worsen and continue return to emergency room as soon as possible. Prescriptions: Losartan [Cozaar] 50 mg PO QDAY #15 tablet NIFEdipine XL [Procardia Xl] 60 mg PO QDAY #15 tablet Referrals: PRIMARY MD BOB [Referring] - 3-5 Days LUCIANO JORDAN MD [Staff Physician] - 3-5 Days
== END 2020-04-08 17:08 | disposition home or self-care (01) ==
LOC: ED 15:07
DX: I10 Essential (primary) hypertension (principal); Z76.0 Encounter for issue of repeat prescription; Z98.890 Other specified postprocedural states; Z21 Asymptomatic human immunodeficiency virus [HIV] infection status; Z79.899 Other long term (current) drug therapy; Z88.8 Allergy status to other drugs, medicaments and biological substances
CPT/HCPCS: 99282

== ENCOUNTER 2020-08-07 12:37 | Emergency (ER) | payer OTHER ==
--- NOTE | 2020-08-07 12:43 | Event Note ---
ED Screening Note Date of service: 08/07/20 Time: 12:42 ED Screening Note: Patient complains of cough, congestion, and body aches x1 month States history of HIV and is not currently on antiretrovirals States mild shortness of breath Chest pain with cough only This initial assessment/diagnostic orders/clinical plan/treatment(s) is/are subject to change based on patients health status, clinical progression and re- assessment by fellow clinical providers in the ED. Further treatment and workup at subsequent clinical providers discretion. Patient/guardian urged not to elope from the ED as their condition may be serious if not clinically assessed and managed. Initial orders include: Labs Chest x-ray
[2020-08-07 12:46] VITALS: BP 168/120
--- NOTE | 2020-08-07 13:15 | XRay Report ---
CHEST 2 VIEWS INDICATION / CLINICAL INFORMATION: cough. COMPARISON: 02/01/2020. FINDINGS: SUPPORT DEVICES: None. HEART / MEDIASTINUM: Stable. LUNGS / PLEURA: Patchy bibasilar opacities most likely reflect atelectasis or very mild edema. No pne umothorax. ADDITIONAL FINDINGS: No significant additional findings. IMPRESSION: 1. Patchy bibasilar opacities are most compatible with atelectasis, although very mild pulmonary domenic a is a consideration. Signer Name: Amadeo Garcia MD Signed: 08/07/2020 1:14 PM Workstation Name: [id number]
[2020-08-07 15:30] LABS: Hemoglobin 12.1 gm/dl (10.1-14.3); Mean Corpuscular HGB Conc 31 % (30-34); Mean Corpuscular Volume 75 fl (79-97); Platelet Count 183 K/mm3 (140-440); Red Blood Count 5.17 M/mm3 (3.65-5.03); Red Cell Distribution Width 14.9 % (13.2-15.2)
[2020-08-07 15:43] LABS: Albumin 3.7 g/dL (3.9-5); Calcium 9.2 mg/dL (8.4-10.2)
--- NOTE | 2020-08-07 17:25 | Emergency Department Report ---
- General Chief Complaint: Upper Respiratory Infection Stated Complaint: FLU SYMPTOMS Time Seen by Provider: 08/07/20 12:42 Source: patient Mode of arrival: Ambulatory Limitations: No Limitations - History of Present Illness Initial Comments: The patient was evaluated in the emergency department for symptoms described in the history of present illness. He/she was evaluated in the context of the global COVID-19 pandemic, which necessitated consideration that the patient might be at risk for infection with the virus that causes COVID-19. Institutional protocols and algorithms that pertain to the evaluation of patients at risk for COVID-19 are in a state of rapid change based on information released by regulatory bodies including the CDC and federal and state organizations. These policies and algorithms were followed during the patient's care in the emergency department. Please note that these policies, procedures and recommendations changed on a rapid basis. 54-year-old -[place] female with a history of HIV currently on no antiretroviral medication high blood pressure presents to the emergency room complaining of cough and chest congestion with a lot of mucus x1 month. Patient states that her cough is getting worse and it makes her chest hurt. Patient did report some shortness of breath. Patient states her last Covid test was in March and negative. She denies any fever chills no nausea no vomiting. States she has been taking [id number] Mucinex and her blood pressure medication. Onset/Timin -: month(s) Severity: mild Consistency: intermittent Context: sick contacts, recent travel Associated Symptoms: cough, shortness of breath (Mild). denies: fever, chills, myalgias, abdominal pain, nausea, vomiting Treatments Prior to Arrival: none - Related Data Previous Rx's Medication Instructions Recorded Last Taken Type Gabapentin 300 mg PO Q8HR #42 capsule 08/14/19 02/03/20 Rx hydrALAZINE [Apresoline TAB] 100 mg PO BID #28 tab 11/30/19 02/03/20 16:24 Rx Bictegrav/Emtricit/Tenofov Ala 1 each PO DAILY #30 tablet 02/03/20 Unknown Rx [Biktarvy 50-200-25 mg (Nf)] Valsartan [Diovan] 160 mg PO DAILY #30 tablet 02/03/20 Unknown Rx hydrALAZINE [Apresoline TAB] 100 mg PO TID #90 tab 03/09/20 Unknown Rx Losartan [Cozaar] 50 mg PO QDAY #15 tablet 04/08/20 Unknown Rx NIFEdipine XL [Procardia Xl] 60 mg PO QDAY #15 tablet 04/08/20 Unknown Rx Albuterol Mdi (or & Nicu Only) 2 puff IH QID PRN #1 inhalation 08/07/20 Unknown Rx [ProAir HFA Inhaler] Azithromycin [Zithromax Z-ROSHNI] 250 mg PO DAILY 5 Days #6 tab 08/07/20 Unknown Rx Benzonatate [Tessalon Perles] 100 mg PO Q8HR #12 capsule 08/07/20 Unknown Rx Sulfamethoxazole/Trimethoprim 1 each PO BID 7 Days #14 tablet 08/07/20 Unknown Rx [Bactrim DS TAB] Allergies Allergy/AdvReac Type Severity Reaction Status Date / Time banana Allergy Hives Verified 08/07/20 12:40 lisinopril Allergy Angioedema Verified 08/07/20 12:38 ED Review of Systems ROS: Stated complaint: FLU SYMPTOMS Other details as noted in HPI Comment: All other systems reviewed and negative ED Past Medical Hx - Past Medical History Hx Hypertension: Yes Hx CVA: No Hx Heart Attack/AMI: No Hx Diabetes: No Hx Deep Vein Thrombosis: No Hx Pulmonary Embolism: No Hx GERD: No Hx Liver Disease: No Hx Renal Disease: No Hx Sickle Cell Disease: No Hx Arthritis: No Hx Headaches / Migraines: No Hx Seizures: No Hx Kidney Stones: No Hx Psychiatric Treatment: No Hx Asthma: No Hx COPD: No Hx Tuberculosis: No Hx Dementia: No Hx HIV: Yes Additional medical history: Shingles - Surgical History Hx Coronary Stent: No Hx Pacemaker: No Hx Internal Defibrillator: No Hx Cholecystectomy: No Hx Appendectomy: No Hx Breast Surgery: No Additional Surgical History: C Section - Social History Smoking Status: Current Some Day Smoker Substance Use Type: None - Medications Home Medications: Home Medications Medication Instructions Recorded Confirmed Last Taken Type Gabapentin 300 mg PO Q8HR #42 capsule 08/14/19 02/03/20 02/03/20 Rx hydrALAZINE [Apresoline TAB] 100 mg PO BID #28 tab 11/30/19 02/03/20 02/03/20 16:24 Rx Bictegrav/Emtricit/Tenofov Ala 1 each PO DAILY #30 tablet 02/03/20 Unknown Rx [Biktarvy 50-200-25 mg (Nf)] Valsartan [Diovan] 160 mg PO DAILY #30 tablet 02/03/20 Unknown Rx hydrALAZINE [Apresoline TAB] 100 mg PO TID #90 tab 03/09/20 Unknown Rx Losartan [Cozaar] 50 mg PO QDAY #15 tablet 04/08/20 Unknown Rx NIFEdipine XL [Procardia Xl] 60 mg PO QDAY #15 tablet 04/08/20 Unknown Rx Albuterol Mdi (or & Nicu Only) 2 puff IH QID PRN #1 inhalation 08/07/20 Unknown Rx [ProAir HFA Inhaler] Azithromycin [Zithromax Z-ROSHNI] 250 mg PO DAILY 5 Days #6 tab 08/07/20 Unknown Rx Benzonatate [Tessalon Perles] 100 mg PO Q8HR #12 capsule 08/07/20 Unknown Rx Sulfamethoxazole/Trimethoprim 1 each PO BID 7 Days #14 tablet 08/07/20 Unknown Rx [Bactrim DS TAB] ED Physical Exam - General Limitations: No Limitations General appearance: alert, in no apparent distress - Head Head exam: Present: atraumatic, normocephalic - Eye Eye exam: Present: normal appearance - ENT ENT exam: Present: mucous membranes moist - Neck Neck exam: Present: normal inspection, full ROM - Respiratory Respiratory exam: Present: rhonchi - Cardiovascular Cardiovascular Exam: Present: regular rate, normal rhythm. Absent: systolic murmur, diastolic murmur, rubs, gallop - GI/Abdominal GI/Abdominal exam: Present: soft, normal bowel sounds - Back Exam Back exam: Present: normal inspection - Neurological Exam Neurological exam: Present: alert, oriented X3, normal gait - Psychiatric Psychiatric exam: Present: normal affect, normal mood - Skin Skin exam: Present: warm, dry, intact, normal color. 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 Sodium 138 Potassium 4.3 Chloride 102.6 Carbon Dioxide 25 Anion Gap 15 BUN 13 Creatinine 1.2 Estimated GFR 57 BUN/Creatinine Ratio 11 Glucose 99 Calcium 9.2 Total Bilirubin 0.20 AST 21 ALT 12 Alkaline Phosphatase 63 NT-Pro-B Natriuret Pep 586.8 Total Protein 8.4 H Albumin 3.7 L Albumin/Globulin Ratio 0.8 - Radiology Data Radiology results: report reviewed [facility] [address] [place] [address] XRay Report Signed Patient: GUS WINN MR#: [id number] : 1965 Acct:[id number] Age/Sex: 54 / F ADM Date: 08/07/20 Loc: ED Attending Dr: Ordering Physician: GILSON GRANADOS Date of Service: 08/07/20 Procedure(s): XR chest routine 2V Accession Number(s): [id number] cc: GILSON GRANADOS Fluoro Time In Minutes: CHEST 2 VIEWS INDICATION / CLINICAL INFORMATION: cough. COMPARISON: 02/01/2020. FINDINGS: SUPPORT DEVICES: None. HEART / MEDIASTINUM: Stable. LUNGS / PLEURA: Patchy bibasilar opacities most likely reflect atelectasis or very mild edema. No pneumothorax. ADDITIONAL FINDINGS: No significant additional findings. IMPRESSION: 1. Patchy bibasilar opacities are most compatible with atelectasis, although very mild pulmonary edema is a consideration. Signer Name: Jono Garcia MD Signed: 08/07/2020 1:14 PM Workstation Name: [id number] Transcribed By: SS Dictated By: JONO GARCIA Electronically Authenticated By: JONO GARCIA Signed Date/Time: 08/07/20 1314 DD/ 1313 TD/TT: - Medical Decision Making 54-year-old -[place] female with a history of HIV currently on no antiretroviral medication high blood pressure presents to the emergency room complaining of cough and chest congestion with a lot of mucus x1 month. Patient states that her cough is getting worse and it makes her chest hurt. Patient did report some shortness of breath. Patient states her last Covid test was in March and negative. She denies any fever chills no nausea no vomiting. States she has been taking [id number] Mucinex and her blood pressure medication. Chest x-ray shows bilateral opacity concerning for atelectasis. Patient will be treated for pneumonia she will be treated with a azithromycin as well as Stephany trim. Patient be discharged home on an inhaler and Tessalon Perles and to follow-up with her infectious disease provider. Critical care attestation.: If time is entered above; I have spent that time in minutes in the direct care of this critically ill patient, excluding procedure time. ED Disposition Disposition: DC-01 TO HOME OR SELFCARE Is pt being admited?: No Does the pt Need Aspirin: No Condition: Stable Instructions: Community-Acquired Pneumonia, Adult, [id number], Bacterial Pneumonia (ED) Additional Instructions: Please complete your antibiotics as prescribed. Use your inhaler. Take all your blood pressure medications as prescribed. I recommend following up with an infectious disease provider. I also encourage you to get Covid testing I have given you a handout on where you can get tested. Prescriptions: Sulfamethoxazole/Trimethoprim [Bactrim DS TAB] 1 each PO BID 7 Days #14 tablet Albuterol Mdi (or & Nicu Only) [ProAir HFA Inhaler] 2 puff IH QID PRN #1 inhalation PRN Reason: Shortness Of Breath Benzonatate [Tessalon Perles] 100 mg PO Q8HR #12 capsule Azithromycin [Zithromax Z-ROSHNI] 250 mg PO DAILY 5 Days #6 tab Referrals: [facility] SIFU[facility] [Other] - 3-5 Days
[2020-08-07 17:59] LABS: Basophils % (Manual) 0 % (0.0-1.8); Total Cells Counted 100
[2020-08-07 18:00] LABS: Hypochromasia 1+
[2020-08-07 18:01] LABS: Ovalocytes Rare; Platelet Estimate Consistent w Auto
== END 2020-08-07 18:38 | disposition home or self-care (01) ==
LOC: ED 12:37
DX: R05 Cough (principal); R09.89 Other specified symptoms and signs involving the circulatory and respiratory systems; I10 Essential (primary) hypertension; F17.200 Nicotine dependence, unspecified, uncomplicated; Z79.899 Other long term (current) drug therapy; Z88.8 Allergy status to other drugs, medicaments and biological substances; Z91.018 Allergy to other foods; Z21 Asymptomatic human immunodeficiency virus [HIV] infection status; Z98.890 Other specified postprocedural states
CPT/HCPCS: 36415; 71046; 80053; 83880; 85007; 85025